=== PATIENT | female | born 1930 | race Caucasian/White ===

== ENCOUNTER 2017-07-02 10:48 | Inpatient (IN) | payer MEDICARE ==
[2017-07-02 11:16] LABS: Oxyhemoglobin 93.3 % (94.0-97.0); Sodium 140 mmol/L (135-148)
[2017-07-02 11:17] LABS: Modified Allen's Test POSITIVE
[2017-07-02 11:18] LABS: Mode 15L NRB
[2017-07-02 11:34] LABS: Hematocrit 34.1 % (36.0-47.0); Mean Platelet Volume 9.1 fL (7.4-10.4); Red Blood Cell (RBC) Count 3.34 mill/uL (4.20-5.40); White Blood Cell (WBC) Count 6.2 thou/uL (4.8-10.8)
[2017-07-02 11:40] LABS: PTT 34.3 SEC (22.9-36.1); Prothrombin Time 21.5 SEC (12.0-14.7)
[2017-07-02 11:43] LABS: Bilirubin Small (Negative); Blood, Urine Moderate (Negative); Glucose, Urine (Dipstick) Negative (Negative); Ketone, Urine Negative (Negative); Nitrite Negative (Negative); Protein, Urine (Dipstick) Negative (Neg-Trace); Urobilinogen 0.2 mg/dL (0.2-1.0)
--- NOTE | 2017-07-02 11:43 | CT ---
CT BRAIN WITHOUT CONTRAST: Date: 07/02/17 HISTORY: Altered mental status. FINDINGS: Comparison made with exam of 04/13/14. Changes of chronic small vessel ischemic disease and cortical atrophy are again seen. Ventricular si ze is stable and the basilar cisterns are patent. No evidence of acute infarct, hemorrhage, midline shift, or abnormal extra-axial fluid collections are seen. The bony calvarium is intact. The visuali zed paranasal sinuses and mastoid air cells are well aerated. IMPRESSION: No CT evidence of acute intracranial process. POS: [facility]
[2017-07-02 11:45] LABS: Bacteria/HPF 2+ HPF (None Seen); Squamous Epithelial 0-3 HPF (0-3); WBC/HPF 0-3 HPF (0-3)
[2017-07-02 11:49] LABS: Band 39 % (5-11); Metamyelocyte 2 % (0-0); Neutrophil 34 % (42-75); Polychromasia SLIGHT = 2-3 cells (100X) (0-2/hpf); Toxic Granulation SLIGHT; Vacuoles MODERATE
[2017-07-02 11:49] LABS: Lactic Acid - Sepsis 2.2 mmol/L (0.5-2.2)
[2017-07-02 11:55] LABS: Amphetamine Not Detected (NotDetected); Methadone Not Detected (NotDetected); Methamphetamine Not Detected (NotDetected)
[2017-07-02 11:56] LABS: RBC/HPF 0-3 HPF (0-3)
[2017-07-02 11:57] LABS: Hyaline Casts/LPF NONE SEEN LPF (0-3 Hyaline); Renal Epithelial None Seen HPF (0-3); Transitional Epithelial NONE SEEN HPF (0-3)
--- NOTE | 2017-07-02 11:59 | RAD ---
SINGLE VIEW OF CHEST: Date: 07/02/17 COMPARISON: 01/06/16. HISTORY: Unresponsive with altered mental status. FINDINGS: Single view of the chest shows an enlarged cardiomediastinal silhouette. Multifocal opacities are se en in the lungs. There may be bilateral pleural effusions. IMPRESSION: 1. Cardiomegaly. 2. Multifocal opacities may represent pulmonary edema or multifocal infiltrates. 3. Bilateral pleural effusions. POS: [facility]
[2017-07-02 12:03] LABS: ALT (SGPT) 55 U/L (8-55); AST (SGOT) 70 U/L (5-34); Acetaminophen Less than 6.0 mcg/mL (10.0-30.0); Alkaline Phosphatase 45 U/L (40-150); Anion Gap 18 mmol/L (10-20); BUN (Urea Nitrogen) 83 mg/dL (9.8-20.1); Bilirubin, Total 0.5 mg/dL (0.2-1.2); CK (CPK) 871 U/L (29-168); Calc. Creatinine Clearance 0 mL/min (70-130); Calcium 8.5 mg/dL (7.8-10.44); Carbon Dioxide 19 mmol/L (23-31); Chloride 106 mmol/L (98-107); Estimated GFR-MDRD 11; Globulin 2.7 g/dL (2.4-3.5); Lipase Less than 4 U/L (8-78); Protein, Total 5.6 g/dL (6.0-8.3); Salicylate Less than 8.0 mg/dL (15.0-30.0)
[2017-07-02 12:06] LABS: Troponin I 3.425 ng/mL (< 0.028)
[2017-07-02] MEDS ORDERED: Clindamycin/D5W 900 mg/50 ml Premix Bag ONE (12:08)
[2017-07-02] MEDS ORDERED: Sodium Chloride 0.9% 100 ML ONE (12:25)
[2017-07-02] MEDS ORDERED: cefTRIAXone\\ROCEPHIN 2 GM VIAL ONE (12:25)
[2017-07-02] MEDS ORDERED: Aspirin 300 MG Suppository ONE (12:47)
[2017-07-02] MEDS ORDERED: Furosemide 40 MG/4 ML VIAL ONE (12:58)
[2017-07-02] MEDS ORDERED: Enoxaparin Sodium 60 MG/0.6 ML SYRINGE ONE (13:06)
--- NOTE | 2017-07-02 14:30 | HP ---
PRIMARY CARE PHYSICIAN: Jean Rodriguez M.D. REASON FOR ADMISSION: The patient came to the emergency room with unresponsiveness. HISTORY OF PRESENT ILLNESS: An 87-year-old female who lives in [place] by herself. She has next-d oor dielectric machine operator who takes care of her. Primary Care Nurse Practitioner is not available at this point. Patient has only one chil d and is present at bedside who lives out of town and she does not have any more clue about presenta tion, so history is very limited at this point. Patient's daughter reports that she visited her in [place], [place] on . At that time, santiago ent appeared completely normal and as per report the patient was also seen normal on Wednesday when she visited [facility]. The patient was not found for 24 hours and that is why dielectric machine operator went to her home and she was found on her floor. So total duration on the ground or bed was unknown. Patient was not r esponsive and that is why she was brought to the emergency room by paramedics. When she found in bed, she was completely altered. She was hot to touch. She was not talking. The patient's daughter reports that she does not like AC and that is why she was not turning on AC at h er home. As per report, neighbor reported that patient was having nausea, vomiting, and gas pain and she was not eating for the last 2 days. Paramedics gave her 4 mg Zofran on the route and she was febrile wi th temperature 100.6. Patient was initially hypoxic with saturation 90% and after nonrebreather fac emask, she was saturating 100%. She was normotensive in the emergency room. The patient found with rhabdomyolysis, acute kidney failure, significantly elevated troponin, and ba ndemia. Patient also had hyperkalemia. Patient also appeared very thin and cachectic. Her chest x -ray was showing multifocal infiltration and pleural effusion. [facility] [place] report reviewed and old history reviewed. REVIEW OF SYSTEMS: All review of systems tried to review with the patient, but unable to review at this point because of her altered mental status. EMERGENCY ROOM COURSE: Patient is given aspirin 325 mg, Lovenox 1 mg per kg, Lasix 40 mg, Rocephin 2 gram, clindamycin 900 mg, Levaquin 750 mg, and IV fluid 1 liter. PAST MEDICAL HISTORY: Coronary artery disease with a history of stent placement, hypertension, dysl ipidemia, gastroesophageal reflux disease, history of colon cancer required resection. PAST SURGICAL HISTORY: Partial colectomy for colon cancer, right arm surgery for proximal humeral f racture, bilateral cataract surgery, cardiac catheterization with stent placement. PAST PSYCHIATRIC HISTORY: Reviewed and negative. SOCIAL HISTORY: The patient lives in [place] by herself. She has only one child who lives in [place], [place]. Patient has a neighbor who is dielectric machine operator who most of the things take care of her. No his tory of tobacco, alcohol or illicit drug abuse. She did have total of 4 children. All of them dece ased except one daughter who was also adopted out, when she was a teenager and they reconnected abou t 10 years ago and her daughter lives in [place], [place]. FAMILY HISTORY: The patient's father from some kind of cancer, no detailed family history at t his point available from patient. ALLERGIES: No known drug allergies. CURRENT HOME MEDICATIONS: The patient does not have any medication with her at this point, but base d on our hospital record from old, patient was on Eliquis 5 mg p.o. b.i.d., lisinopril 10 mg p.o. at bedtime, metoprolol 25 mg p.o. at bedtime, Protonix 40 mg p.o. daily, Zocor 40 mg p.o. at bedtime. This medication is not confirmed and we will verify before entering in system. PHYSICAL EXAMINATION: VITAL SIGNS: Most recently vital signs, blood pressure 151/72, pulse 79, respiratory rate 24, satur ation 99% on facemask, weight 51.3 kilograms, and temperature 99.7. GENERAL: The patient is currently awake, but appears exhausted and weak, opens eyes, follow simple commands. HEAD: Normocephalic, atraumatic. EYES: Pupils round, reactive to light. Extraocular muscles intact. ENT: Dry mucous membranes, no oral lesions. No pharyngeal erythema, no exudate. NECK: Supple. Range of motion is normal. No meningeal signs of irritation. LUNGS: Coarse breath sounds noted. No obvious rhonchi or wheeze heard. No accessory muscles of re spiration in use. CARDIAC: S1 and S2, regular without any significant murmur. ABDOMEN: Soft, bowel sounds present, nontender, and nondistended. No organomegaly, no mass, no sup rapubic tenderness. BACK: Examination unremarkable, no CVA tenderness. EXTREMITIES: Upper extremity, passive movements of all joints are normal. Lower extremity, no jodee a. Good peripheral pulsation. SKIN: No skin rash. HEMATOLOGICAL SYSTEM: No lymphadenopathy. NEUROLOGIC: Unable to assess at this point because the patient does not follow commands, only she i s awake and minimally responsive. PSYCHIATRIC: Flat affect. SIGNIFICANT LABORATORY DATA AND X-RAY FINDINGS: 1. CBC: WBC 6.2, hemoglobin 11.2, MCV 102.0, platelets 211, bandemia. INR 1.8. ABG: pH 7.33, bi carbonate 22.6, CO2 44.2, O2 80.1, saturation 95%. 2. BMP: Sodium 138, potassium 5.4, chloride 106, carbon dioxide 19, anion gap 18, BUN 83, creatini ne 3.92, glucose 162, and calcium 8.5. 3. LFT: AST 70, ALT 55, alkaline phosphatase 745, and albumin 2.9. CK 871, CK-MB 8.3, troponin I is 3.42. BNP 840.4, TSH 0.1561. Ammonia 32. Lactic acid 2.2. Urinalysis, blood large. Urine tawny g screen negative. Serum drug screen negative. 4. EKG showing sinus rhythm without any acute ischemic changes. Chest x-ray showing multifocal inf iltration and bilateral pleural effusion. CT brain negative for any acute intracranial process. ASSESSMENT AND PLAN/IMPRESSION: 1. Acute encephalopathy, etiology is likely related with metabolic encephalopathy. Underlying infe ctious etiology needs to be excluded. Neurologic, less likely given CT brain is unremarkable. 2. Acute respiratory failure with hypoxia. Patient is maintaining oxygen with a nonrebreather. At this point, patient also has bilateral multifocal infiltration and bilateral pleural effusion. Her hypoxic respiratory failure is multifactorial etiology including possibly aspiration pneumonia vers us pulmonary edema. The patient will be admitted in IMCU. Pulmonary and Cardiology will be consult ed. 3. Acute kidney failure, likely due to prerenal etiology. The patient is given IV fluid trial and we will continue IV fluid at a slow rate and we will watch for any volume overload. At this point, I am suspecting that this patient has prerenal kidney failure rather than congestive heart failure r elated renal insufficiency. We will check urine sodium, urine creatinine, and protein. We will obt ain renal ultrasound and we will consult Nephrology for evaluation as well. 4. Sepsis with acute organ dysfunction. The patient has bandemia, acute kidney failure, and non-ST -elevation myocardial infarction, rhabdomyolysis, abnormal LFT. All of this contributes to sepsis w ith acute organ dysfunction. This patient was also febrile. At this point, we will give her pharma cy adjusted vancomycin and Zosyn to cover for anaerobes and Staphylococcus. 5. Pkt-AS-kmfzeopos myocardial infarction. It is unclear whether this patient was having any chest pain or not, but EKG is not showing any ischemic changes. She does have coronary artery disease hi story with stent and this patient's troponin is significantly abnormal. It is also unclear whether this is related with demand ischemia of myocardium or not. We will obtain echocardiography and cons ult Cardiology. Meanwhile, we will continue with aspirin 325 mg p.o. daily. Patient already receiv ed Lovenox in the emergency room. 6. Elevated BNP. This patient has bilateral pleural effusion and fluffy infiltration. It is uncle ar whether this patient has acute congestive heart failure, diastolic, based on previous echo. We w ill repeat echocardiography. The patient has already received Lasix, but at this point given renal insufficiency and patient is so dry, we will avoid diuretic therapy. We will watch her on IMCU. If the patient's condition gets worse with fluid, then we will consider starting diuretic therapy. 7. Rhabdomyolysis, likely due to prolonged bedbound position patient remained in bed, almost 24 mitzy rs. Patient will be given gentle IV fluid and we will repeat CK level tomorrow. 8. Hyperkalemia, likely due to metabolic acidosis and renal failure. We will hold on patient's sandie e dose of lisinopril. At this point, we will avoid potassium supplementation. We will repeat basic metabolic panel tomorrow. 9. Aspiration pneumonia. The patient is already on vancomycin and Zosyn. We will continue with e DuoNeb therapy. 10. Microcytic anemia. We will start folic acid, vitamin B12 while in hospital and we will check B 12 and folate level tomorrow. 11. Moderate protein calorie malnutrition. The patient will be given nutritional supplement. Befo re we start any diet, we will need speech therapy evaluation to assess safest diet. 12. Coagulopathy, may be related with sepsis versus current anticoagulation. It is unclear whether this patient is still taking Eliquis or not, but we will verify the patient's home medication. 13. History of dyslipidemia. We will hold on statin therapy because of rhabdomyolysis. 14. Hypertension. We will continue with metoprolol 25 mg p.o. b.i.d. We will hold on lisinopril t herapy because of hyperkalemia and kidney failure. 15. Gastroesophageal reflux disease. We will continue with Pepcid 20 mg IV daily. CODE STATUS: I spoke with the patient's daughter who states that she only wants to try one time for CPR and intubation. If there are chances of survival, in that case, we will keep as a FULL CODE an d patient's daughter is surrogate decision maker. Disposition plan based on clinical course. This patient may need placement upon discharge. Prognos is is guarded. Condition is guarded. Plan of care discussed with the patient's family member at be [facility] in the emergency room.
[2017-07-02 14:52] LABS: Critical Call Chem Troponin I RESULT DECREASING
[2017-07-02] MEDS ORDERED: Ondansetron HCl/PF 4 MG/2 ML Vial IVP PRN ×2 (14:55→15:08)
[2017-07-02] MEDS ORDERED: Sodium Chloride 0.9% 1,000 ML IV SCH (14:55)
[2017-07-02] MEDS ORDERED: Ondansetron ODT 4 MG TAB SL PRN ×2 (14:55→15:08)
[2017-07-02] MEDS ORDERED: VANCOMYCIN IVPB PRN (15:08)
[2017-07-02] MEDS ORDERED: Bisacodyl 10 MG SUPP PR PRN (15:08)
[2017-07-02] MEDS ORDERED: Acetaminophen 650 MG Suppository PR PRN (15:08)
[2017-07-02] MEDS ORDERED: Acetaminophen 325 MG TAB PO PRN (15:08)
[2017-07-02] MEDS ORDERED: Nitroglycerin 0.4 MG TAB (25 Tab Bottle) SL PRN (15:08)
[2017-07-02] MEDS ORDERED: Diabetic Tussin 200 MG/10 ML UDCUP PO PRN (15:08)
[2017-07-02] MEDS ORDERED: Loperamide HCl 2 MG CAP PO PRN (15:08)
[2017-07-02] MEDS ORDERED: Sodium Chloride 0.65% Nasal 44 ML BOT EA NARE PRN (15:08)
[2017-07-02] MEDS ORDERED: Eucerin (Mineral Oil/Petrolatum,White) 30 gm Jar TOP PRN (15:08)
[2017-07-02] MEDS ORDERED: Milk Of Magnesia 30 ML UDCUP PO PRN (15:08)
[2017-07-02] MEDS ORDERED: Mag-Al 1200 mg/1200 mg/30 ML UDCUP PO PRN (15:08)
[2017-07-02] MEDS ORDERED: Artificial Tears 18 DROP/0.9 ML EA EYE PRN (15:08)
[2017-07-02 15:16] LABS: Oxyhemoglobin 85.3 % (94.0-97.0); Sodium 137 mmol/L (135-148)
[2017-07-02] MEDS ORDERED: Midazolam HCl 2 mg/2 ml Vial ONE (15:33)
[2017-07-02] MEDS ORDERED: Fentanyl 20 MCG/ML 250 ML ONE (15:37)
[2017-07-02 15:44] LABS: Vent NO
[2017-07-02 15:45] LABS: Mode NC
[2017-07-02 15:49] LABS: Free T3 1.45 pg/mL (1.71-3.71)
[2017-07-02] MEDS ORDERED: Sedation Protocol FS ONE (15:54)
[2017-07-02] MEDS ORDERED: Fentanyl 20 MCG/ML 250 ML IVPB SCH (15:56)
[2017-07-02] MEDS ORDERED: DISCONTINUE PREVIOUS NARCOTIC PAIN MEDICATIONS AND BENZODIAZEPINES FS SCH (15:56)
[2017-07-02] MEDS ORDERED: Morphine Sulfate 2 MG/ML SYRINGE SLOW IVP PRN (15:56)
[2017-07-02] MEDS ORDERED: Propofol 1,000 MG/100 ML VIAL IV PRN (15:56)
[2017-07-02] MEDS ORDERED: Lorazepam 2 MG/ML VIAL SLOW IVP PRN (15:56)
--- NOTE | 2017-07-02 16:07 | CON ---
DATE OF SERVICE: 07/02/2017 PRIMARY HAZMAT TANKER DRIVER: Jass Fowler M.D. REASON FOR CONSULTATION: Non-STEMI. HISTORY OF PRESENT ILLNESS: Ms. Mcmillan is a very pleasant 87-year-old white female, who comes to the hospital as she was found down at home. She lives home alone and her machining technician and her neighbor come check on her, they take turns every other day. Today, it was her pastors turn and she was found un responsive on the floor. 911 was called and she was brought in immediately for this. She was hypox ic and started on supplemental oxygen. On my evaluation, she is confused, obtunded and unresponsive . She had a temperature of 100.6 in the ER. Cardiology is being consulted as her troponins went to 3 range. She is unable to give any more history. PAST MEDICAL HISTORY: 1. Coronary artery disease. She had a stent placed to her LAD and OM branch in 2008. 2. Gastroesophageal reflux disease. 3. Hypertension. 4. Hypolipidemia. 5. Colon cancer, requiring resection in the past. PAST SURGICAL HISTORY: 1. Colon resection. 2. Right arm surgery. 3. Bilateral cataract surgery. 4. Cardiac catheterization with stent as above. OUTPATIENT MEDICATIONS: Per chart review. 1. Eliquis 5 mg p.o. b.i.d. 2. Lisinopril 10 mg a day. 3. Metoprolol 25 mg at bedtime. 4. Protonix 40 mg a day. 5. Zocor 40 mg at bedtime. ALLERGIES: No known drug allergies. FAMILY HISTORY: Noncontributory. SOCIAL HISTORY: Lives alone. Daughter lives in [place], but does not really know her, neighbor an d a machining technician see her. No alcohol, tobacco or drugs per chart review. REVIEW OF SYSTEMS: Unobtainable as the patient is unresponsive. PHYSICAL EXAMINATION: VITAL SIGNS: Temperature 100.6, respiration rate 28, saturating 92% on 4 liters, blood pressure 142 /68. GENERAL: Patient is awake, but unresponsive. HEENT: Normocephalic, atraumatic. NECK: Supple. LUNGS: Have coarse breath sounds bilateral. CARDIOVASCULAR: Distant heart sounds. ABDOMEN: Soft, positive bowel sounds. EXTREMITIES: 1+ edema. LABORATORY WORK: Reviewed. White count of 6.2, hemoglobin of 11, hematocrit of 34, platelet count 211. Coags were reviewed. ABG was reviewed. Chemistries were reviewed. Troponin I from 3.4, down to 2.9. BNP was 840. BUN of 83, creatinine 3.92, GFR of 11, glucose of 162. Lactic acid was 2.2, ammonia was 32. CK was 871, albumin of 2.9. TSH was low at 0.1. Lipase was undetectable. UA was unremarkable. Urine drug screen was negative. Alcohol, acetaminophen, and salicylates were negati ve. EKG was reviewed. Chest x-ray shows bilateral pulmonary edema. CT of the head showed no evidence of acute intracranial process. ASSESSMENT AND PLAN: 1. Non-ST elevation myocardial infarction. 2. Acute on chronic systolic versus diastolic heart failure. 3. Possible pneumonia. 4. Altered mental status. 5. Acute kidney injury on chronic kidney disease. 6. Coronary artery disease. PLAN: 1. Supportive care. Currently, she is severely ill and is about to get intubated and she is unable to protect her airway. She remains FULL CODE for now. At this time, we will await to see when her clinical evolution does before deciding on any invasive interventions. Supportive care for now aft er intubation, she may need some pressor support or some inotropic support. We will get an echocard iogram to assess LV function that has been normal in the past. 2. We will continue to follow.
[2017-07-02 16:41] LABS: Oxyhemoglobin 95.3 % (94.0-97.0); Sodium 136 mmol/L (135-148)
[2017-07-02 16:45] LABS: Mechanical Tidal Volume 400 ml; Mode SIMV; Pressure Support 10 cmH2O; Vent YES
[2017-07-02] MEDS: Piperacillin/Tazobactam 2.25 GM in Sodium Chloride 0.9% 100 ML IVPB SCH ×2 (18:39→23:39)
--- NOTE | 2017-07-02 19:05 | RAD ---
PORTABLE AP CHEST X-RAY: 07/02/17 HISTORY: Intubated. COMPARISON: 07/02/17 at 11:45 hours. FINDINGS: There has been interval placement of an endotracheal tube with tip overlying the T6 vertebral body a lucho the level of the china. The nasogastric tube has also been placed in the interim which courses into the left upper quadrant, the tip is not imaged on this exam. Increased interstitial and alveol ar opacities are again seen in the perihilar regions bilaterally and at the lung bases. Vascular calcifications are seen in the thoracic aorta. There is osteopenia with right humeral prost hesis again noted. IMPRESSION: 1. Bilateral increased interstitial and alveolar opacities greatest at each lung base which is worrisome for pneumonia and possibly atypical pneumonia. 2. Interval placement of endotracheal tube and nasogastric tube as described above. POS: [facility]
--- NOTE | 2017-07-02 19:23 | ULT ---
RENAL SONOGRAM 07/02/17 HISTORY: Acute renal insufficiency. COMPARISON: CT abdomen on 01/19/17. FINDINGS: The right kidney measures 9.7 cm x 4.5 cm with the left kidney measuring 9.7 cm x 5.8 cm. There is a small hypoechoic structure seen at the medial aspect mid portion left kidney which likely corresponds to small hypodense lesion seen in this location on prior CT examination and probably re presents a small renal cyst. There is no additional renal mass, renal calculus or hydronephrosis inv olving the kidneys bilaterally. The urinary bladder is decompressed and Lacy catheter is noted to be in place. IMPRESSION: Difficult to characterize hypodense lesion medial aspect left kidney which likely corresponds to sma ll hypodense lesion seen mid portion left kidney on CT scan examination which had the appearance mos t suggestive of a cyst. The kidneys otherwise have a normal sonographic appearance bilaterally witho ut evidence of hydronephrosis. POS: [facility]
[2017-07-02 19:27] LABS: Sodium, Urine Less than 20 mmol/L (Not Available)
[2017-07-02 19:41] LABS: Troponin I 1.938 ng/mL (< 0.028)
[2017-07-02] MEDS ORDERED: Clindamycin/D5W 900 MG in Premix Bag 1 BAG IVPB SCH (20:00)
[2017-07-02] MEDS ORDERED: Vancomycin HCl 500 MG in Sodium Chloride 0.9% 100 ML IVPB SCH (20:00)
[2017-07-02] MEDS: Metoprolol Tartrate 25 MG TAB PO SCH (20:26)
[2017-07-02] MEDS ORDERED: Furosemide 40 MG/4 ML VIAL SLOW IVP SCH (21:00)
[2017-07-02] MEDS: Heparin 5,000 UNITS/ML VIAL SC SCH (21:05)
[2017-07-02 21:50] LABS: Critical Call CKMBM RESULT DECREASING; Critical Call Chem Troponin I RESULT DECREASING; Troponin I 1.457 ng/mL (< 0.028)
--- NOTE | 2017-07-02 23:56 | CON ---
DATE OF CONSULTATION: 07/02/2017 HISTORY OF PRESENT ILLNESS: This is an 87-year-old female who was admitted to the [facility]. She had a chest x-ray, which shows large pleural effusion and bilateral pulmonary infiltrates. She is on MICU when the nurses called me saying patient arrived unresponsive and looked like she was hav ing difficulty breathing, but clearly unresponsive to verbal command. I tried to call the daughter to get information about her code status, but we were unable to do so. She was bagged and transferred to the ICU. Admitting physician stated that they spoke to the miriam lima who wanted everything to be done initially. Thereafter, would make a decision about long-term c are. She was immediately taken to the ICU where she was bagged and was given no sedation. A bite block w as placed and a 7.5 endotracheal tube was placed via the bronchoscope. The patient was intubated or ally without any problems. Tube was placed way above the china. She was bagged. A bite block was placed, and with an adapter on the endotracheal tube, both lungs were inspected and lavaged with no rmal saline. To note, both lungs with no endobronchial obstruction or blood or pus was seen. She w as connected to a volume-cycle respirator. Additional information is that the patient apparently was inside sales representative the ER with a temperature of 100.6 and blood pressure 130/70. Unable to get any additional history. PAST MEDICAL HISTORY: Coronary artery disease, multiple stents, history of colon cancer, history of hypertension, IL and coronary artery disease. PAST SURGICAL HISTORY: Shoulder surgery, cardiac stent, an EGD done for ongoing colitis, colon surg betty, proximal humerus surgery, cataract, stenting. SOCIAL HISTORY: Apparently, no history of alcohol or tobacco use that we can obtain. MEDICATIONS FROM HOME: Included Zocor, Protonix 40, metoprolol 25, Zestril 10 and Eliquis 5 b.i.d. REVIEW OF SYSTEMS: Unobtainable. PHYSICAL EXAMINATION: GENERAL: She was bagged. VITAL SIGNS: Sats improved to the 90s, pulse 74 and blood pressure 120/80. CHEST: Bilateral rhonchi and crackles. CARDIAC: Sinus tachycardia. ABDOMEN: Soft. Post-intubation, she was given 1 mg of Versed. She is still pretty much unresponsive. NG tube is i n place. LABORATORY DATA: White count 6000, hemoglobin and hematocrit 11 and 34, platelet count 211, 1 6, 34 neutrophils and 60 lymphocytes. Creatinine is 3.2, BUN is 83, CK-MB is 8.3, troponin 2.9 and BNP is 840. UA is otherwise unremarkable. IMPRESSION AND PLAN: 1. Metabolic encephalopathy. 2. Renal failure. 3. X-ray consistent with congestive heart failure, bilateral pleural effusion and infiltrates. 4. Advanced age. 5. Multiple stents. She had a CT done of the brain, which was unremarkable. Post-intubation, await input from Cardiolog y. Empiric antibiotics and supportive care. Await results of the echo. We will consult Nephrology. We will follow. This is a 45-minute critical care time exclusive of the intubation.
[2017-07-03 05:07] LABS: ALT (SGPT) 88 U/L (8-55); AST (SGOT) 86 U/L (5-34); Alkaline Phosphatase 46 U/L (40-150); Anion Gap 17 mmol/L (10-20); BUN (Urea Nitrogen) 82 mg/dL (9.8-20.1); Bilirubin, Total 0.4 mg/dL (0.2-1.2); CK (CPK) 1200 U/L (29-168); Calc. Creatinine Clearance 11 mL/min (70-130); Calcium 8.5 mg/dL (7.8-10.44); Carbon Dioxide 22 mmol/L (23-31); Chloride 105 mmol/L (98-107); Estimated GFR-MDRD 15; Globulin 2.8 g/dL (2.4-3.5); Protein, Total 5.6 g/dL (6.0-8.3)
[2017-07-03 05:12] LABS: Band 41 % (5-11); Hematocrit 33.2 % (36.0-47.0); Mean Platelet Volume 9.8 fL (7.4-10.4); Neutrophil 48 % (42-75); Red Blood Cell (RBC) Count 3.29 mill/uL (4.20-5.40); White Blood Cell (WBC) Count 7.1 thou/uL (4.8-10.8)
[2017-07-03] MEDS: Piperacillin/Tazobactam 2.25 GM in Sodium Chloride 0.9% 100 ML IVPB SCH ×3 (05:20→17:17)
[2017-07-03] MEDS: Furosemide 100 MG/10 ML VIAL SLOW IVP SCH ×2 (05:21→13:49)
--- NOTE | 2017-07-03 07:11 | CON ---
NEPHROLOGY CONSULT DATE OF CONSULTATION: 07/02/2017 CONSULTING PHYSICIAN: Dr. Nevarez. REASON FOR CONSULTATION: Acute kidney injury and hyperkalemia. REASON FOR ADMISSION: Altered mentation and unresponsiveness. HISTORY OF PRESENT ILLNESS: This is an 87-year-old white female from [place] with a past medical h istory of coronary artery disease, hypertension, hyperlipidemia, and colon cancer, who was brought t o the hospital after was found on the floor, she was found by her cashier general who lives next-door and myles cks on her periodically. Her daughter was also here who is from [place], [place]. No real history is available at this point. Patient was in ICU and intubated. Also from review of the records and the patient was intubated here at the facility. She was found to have respiratory distress. No fev er or chills reported. No skin rash. Patient was also found to have elevated creatinine. Creatini ne on admission was 3.9 and last creatinine was from March, which was 0.83. She was also found to rodriguez ve elevated troponin. Cardiology was consulted. PAST MEDICAL HISTORY: Positive for coronary artery disease, hypertension, hyperlipidemia, gastroeso phageal reflux disease and colon cancer. PAST SURGICAL HISTORY: Partial colectomy, right arm fracture repair, bilateral cataract surgery, ca rdiac catheterization and stent placement. HOME MEDICATIONS: Eliquis, lisinopril, metoprolol, Protonix, Zocor. ALLERGIES: No known drug allergies. SOCIAL HISTORY: No smoking, alcohol or illicit drug abuse. FAMILY HISTORY: No history of any kidney disease reported. REVIEW OF SYSTEMS: Could not be obtained as she is intubated and not responding. PHYSICAL EXAMINATION: GENERAL: This is an elderly white female seen in ICU, intubated. VITAL SIGNS: Temperature 96, pulse 104, blood pressure 109/69. HEENT: Intubated. HEART: S1, S2 heard, tachycardic. RESPIRATORY: Coarse breath sounds. GASTROINTESTINAL: Abdomen is soft. MUSCULOSKELETAL: No tenderness, no edema. DERMATOLOGIC: Chronic elderly, fragile skin. NEUROLOGIC: Intubated, not responding, making non-purposeful movements at this point. LABORATORY AND X-RAY FINDINGS: Hemoglobin is 11.2, potassium was 5.4, BUN 83, creatinine 3.9. Trop onin I was 3.4. ASSESSMENT AND PLAN: 1. Acute kidney injury most likely from volume depletion and possible cardiorenal with a possible c oronary artery disease and cardiac arrest at home. 2. Elevated BNP. 3. Hyperkalemia renal failure. Limit potassium. 4. Acidosis secondary to hypoperfusion. 5. Azotemia. 6. Anemia, mild. 7. Hypertension, stable. 8. Edema, controlled. Overall, prognosis remains poor at this point. Renal ultrasound pending; follow up results. Avoid nephrotoxins. Continue supportive care at this point. Continue discussion with the family. Emilia haines has a poor prognosis, currently on Lasix IV and IV fluids. We will monitor vancomycin level. Thank you for the consultation. We will follow.
[2017-07-03 07:23] LABS: Oxyhemoglobin 96.3 % (94.0-97.0); Sodium 139 mmol/L (135-148)
[2017-07-03 07:24] LABS: Mechanical Tidal Volume 400 ml; Modified Allen's Test NOT DONE; Vent YES
[2017-07-03 07:25] LABS: Mode SIMV/PSV; Pressure Support 10 cmH2O
[2017-07-03] MEDS: Metoprolol Tartrate 25 MG TAB PO SCH ×2 (08:53→20:27)
[2017-07-03] MEDS: Famotidine/PF 20 mg/2ml Vial SLOW IVP SCH (08:53)
[2017-07-03] MEDS: Folic Acid 1 MG TAB PO SCH (08:53)
[2017-07-03] MEDS: Heparin 5,000 UNITS/ML VIAL SC SCH ×2 (08:53→20:26)
[2017-07-03] MEDS: Aspirin 325 MG TAB PO SCH (08:53)
[2017-07-03] MEDS: Cyanocobalamin (Vitamin B-12) 1,000 MCG TAB PO SCH (08:56)
[2017-07-03] MEDS: Aspirin 300 MG Suppository PR SCH (09:23)
[2017-07-03] MEDS: Dextrose 5 %-0.45 % NaCl 1,000 ML IV SCH (09:29)
--- NOTE | 2017-07-03 11:27 | RAD ---
AP VIEW CHEST: 07/03/2017 HISTORY: Ventilator dependent patient. COMPARISON: 07/02/2017 FINDINGS: AP view chest demonstrates nasogastric and endotracheal tubes to be in good position. A prosthetic right shoulder is seen. EKG leads are seen over the chest. Pulmonary vascular congestion is noted. Bilateral air space opacities are seen. Patchy areas of density are also seen in the right and le ft lung bases. Small bilateral pleural effusions are seen. Overall, the degree of air space opacit y is less than on the previous day's exam. IMPRESSION: Improved aeration and decrease air space opacities. POS: [facility]
--- NOTE | 2017-07-03 12:09 | PDOC.CTH ---
Cardiology Progress Note - Subjective Remains intubated. - Objective Vital Signs Temp Pulse Resp BP Pulse Ox 07/03/17 10:00 13 07/03/17 08:00 99.6 F 119 H 13 100 07/03/17 06:57 125 H 121/69 07/03/17 06:00 20 07/03/17 04:00 20 07/03/17 02:45 119 H 07/03/17 02:00 20 Weight 113 lb 8.609 oz 07/02/17 07/03/17 07/04/17 06:59 06:59 06:59 Intake Total 1405 231 Output Total 1405 730 Balance 0 -499 - Physical Examination General/Neuro: other: (Sedated intubated. ) Neck: no JVD present Lungs: unlabored respirations, other: (Crackles bilat. ) Heart: RRR Abdomen: NT/ND Extremities: + edema B (none) - Telemetry Telemetry Rhythm: NSR - Labs Result Diagrams: 07/03/17 03:47 07/03/17 03:47 Troponin/CKMB CK-MB (CK-2) 12.1 ng/mL (0-6.6) H* 07/02/17 21:12 Troponin I 1.457 ng/mL (< 0.028) H* 07/02/17 21:12 - Assessment/Plan 1. NSTEMI 2. Acute on chronic diastolic heart failure. 3. Possible pneumonia. 4. Acute hypoxic respiratory insufficiency 5. AMS 6. MARILYN on CKD. PLAN: - Continue IV lasix as her creatinine and lungs look better today from diuresis. - Became a little hypotensive with metoprolol, will hold for now. - Will do permissive tachycardia as she may need the heart rate due to her acute illness. - Initial troponin was in the 3 range and it has been trending down since admission suggesting that if this was a coronary event it happened at least 48 hours before admission and we are only seeing the end tail of the episode. - No invasive interventions planned at this time due to her being unstable still.
--- NOTE | 2017-07-03 13:26 | PRG ---
DATE OF SERVICE: 07/03/2017 SUBJECTIVE: Awake, alert, responsive this morning on the vent. She is on 25 mcg of fentanyl, which was withheld. OBJECTIVE: VITAL SIGNS: Pulse 123, blood pressure is 104/30, sats are 100%, respirations 20. I's and O's are 145 in and 145 out. NEUROLOGICAL: She does move all 4 extremities. CHEST: Chest reveals decreased breath sounds, no wheezing. CARDIAC: Normal S1, S2. No gallops. ABDOMEN: Soft, no masses. X-RAY: Shows improvement in bilateral pleural effusions, there is right-sided infiltrate. LABORATORY DATA: She has got 48 segs, 41, bands. White count 10,000, H\T\H is 11 and 33, platelet count 197, pO2 of 95, pCO2 42, pH 7.42, on a rate of 20, 60%. BUN and creatinine are 82 and 2.93. Troponin is 1.45. IMPRESSION: 1. Respiratory failure, congestive heart failure, probably had an myocardial infarction. 2. Superimposed pneumonia. 3. Bandemia. 4. Advanced age. 5. Renal failure. PLAN: Minimize sedation, try and wean in the next 24-48 hours. Continue antibiotics, nebulizer treatments, steroids. We will follow. One-half hour critical care time.
--- NOTE | 2017-07-03 14:10 | PDOC.PN ---
- Subjective Encounter Start Date: 07/03/17 Encounter Start Time: 08:40 Pt seen for followup re: acute respiratory failure. Intubated, unable to provide history or ROS. - Objective Resuscitation Status: Resuscitation Status FULL:Full Resuscitation MAR Reviewed: Yes Vital Signs & Weight: Vital Signs (12 hours) Temp Pulse Pulse Pulse Resp BP BP 07/03/17 12:00 10 L 07/03/17 11:25 121 H 121 H 172/99 H 07/03/17 10:00 13 07/03/17 08:00 99.6 F 119 H 13 07/03/17 06:57 125 H 121/69 07/03/17 06:00 20 07/03/17 04:00 20 07/03/17 02:45 119 H BP Pulse Ox Pulse Ox Pulse Ox 07/03/17 12:00 07/03/17 11:25 141/82 H 95 95 07/03/17 10:00 07/03/17 08:00 100 07/03/17 06:57 07/03/17 06:00 07/03/17 04:00 07/03/17 02:45 Weight Admit Weight 113 lb 8.608 oz Weight 113 lb 8.609 oz Most Recent Monitor Data Heart Rate from ECG 113 NIBP 109/69 NIBP BP-Mean 85 Respiration from ECG 18 SpO2 100 I&O: 07/02/17 07/03/17 07/04/17 06:59 06:59 06:59 Intake Total 1405 231 Output Total 1405 930 Balance 0 -699 Result Diagrams: 07/03/17 03:47 07/03/17 03:47 EKG Reviewed by me: Yes (Tele: NSR) Phys Exam - Physical Examination Intubated HEENT: moist MMs ETT Neck: no JVD Respiratory: no wheezing, no rales, no rhonchi, clear to auscultation bilateral Cardiovascular: RRR, no rub Gastrointestinal: soft, positive bowel sounds Musculoskeletal: pulses present, edema present Neurological: moves all 4 limbs Psychiatric: normal affect Skin: no rash, cap refill <2 seconds Dx/Plan (1) Acute respiratory failure Code(s): J96.00 - ACUTE RESPIRATORY FAILURE, UNSP W HYPOXIA OR HYPERCAPNIA Status: Acute (2) NSTEMI (non-ST elevated myocardial infarction) Code(s): I21.4 - NON-ST ELEVATION (NSTEMI) MYOCARDIAL INFARCTION Status: Acute (3) E. coli UTI Code(s): N39.0 - URINARY TRACT INFECTION, SITE NOT SPECIFIED; B96.20 - UNSP ESCHERICHIA COLI THE CAUSE OF DISEASES CLASSD ELSWHR Status: Acute (4) Rhabdomyolysis Code(s): M62.82 - RHABDOMYOLYSIS Status: Acute (5) Hypertension Code(s): I10 - ESSENTIAL (PRIMARY) HYPERTENSION Status: Chronic - Plan continue antibiotics, DVT proph w/heparin * . Rhabdo worsening. Continue gentle hydration. Continue IV antibiotics for E. coli UTI. Troponin trending down. Vent management per PCCM. Review of Systems - Medications/Allergies Allergies/Adverse Reactions: Allergies Allergy/AdvReac Type Severity Reaction Status Date / Time No Known Allergies Allergy Verified 02/16/17 11:27 Medications: Current Medications Acetaminophen (Tylenol) 650 mg PO Q4H PRN PRN Reason: Headache/Fever or Pain Acetaminophen (Tylenol) 650 mg [place] Q4H PRN PRN Reason: Headache/Fever or Pain Al Hydroxide/Mg Hydroxide (Maalox) 30 ml PO Q6H PRN PRN Reason: Heartburn or Indigestion Albuterol/Ipratropium (Duoneb) 3 ml NEB [id number] PRN PRN Reason: SOB &/or Wheezing Artificial Tears (Tears Naturale) 0 drop EA EYE PRN PRN PRN Reason: Dry Eyes Aspirin (Aspirin) 300 mg [place] DAILY [facility] Last Admin: 07/03/17 09:23 Dose: Not Given Aspirin (Aspirin) 325 mg PO DAILY [facility] Last Admin: 07/03/17 08:53 Dose: 325 mg Bisacodyl (Dulcolax) 10 mg [place] Q24H PRN PRN Reason: Constipation Cyanocobalamin (Vitamin B-12) 1,000 mcg PO DAILY [facility] Last Admin: 07/03/17 08:56 Dose: 1,000 mcg Famotidine (Pepcid) 20 mg SLOW IVP DAILY [facility] Last Admin: 07/03/17 08:53 Dose: 20 mg Folic Acid (Folvite) 1 mg PO DAILY [facility] Last Admin: 07/03/17 08:53 Dose: 1 mg Furosemide (Lasix) 60 mg SLOW IVP 0600,1400 [facility] Last Admin: 07/03/17 13:49 Dose: 60 mg Guaifenesin (Robitussin Sf) 200 mg PO Q4H PRN PRN Reason: Cough Heparin Sodium (Porcine) (Heparin) 5,000 units SC BID [facility] Last Admin: 07/03/17 08:53 Dose: 5,000 units Hydralazine HCl (Apresoline) 10 mg SLOW IVP Q4H PRN PRN Reason: Systolic BP > 180 Piperacillin Sod/Tazobactam (Sod 2.25 gm/ Sodium Chloride) 100 mls @ 200 mls/ hr IVPB Q6HR [facility] Last Admin: 07/03/17 12:26 Dose: 100 mls Fentanyl (Fentanyl Cadd) 250 mls @ 0 mls/hr IVPB INF OCTAVIANO; Titrate PRN Reason: Protocol Stop: 08/01/17 15:56 Last Admin: 07/02/17 17:11 Dose: 250 mls Fentanyl Citrate (Fentanyl Bolus) 250 mls @ 0 mls/hr IVPB PRN PRN; As Directed PRN Reason: VENTILATION SEDATION PROTOCOL Stop: 08/01/17 15:56 Vancomycin HCl 500 mg/ Sodium (Chloride) 100 mls @ 100 mls/hr IVPB Q2D@2000 [facility] Last Admin: 07/02/17 20:58 Dose: 100 mls Dextrose/Sodium Chloride (D5 1/2 Ns) 1,000 mls @ 50 mls/hr IV .Q20H [facility] Last Admin: 07/03/17 09:29 Dose: 1,000 mls Loperamide HCl (Imodium) 2 mg PO PRN PRN PRN Reason: Diarrhea/Loose Stools Lorazepam (Ativan) 2 mg SLOW IVP Q2H PRN PRN Reason: Anxiety to achieve Elizabeth 2-3 Stop: 08/01/17 15:56 Magnesium Hydroxide (Milk Of Magnesium) 30 ml PO DAILYPRN PRN PRN Reason: Constipation Methylprednisolone Sodium Succinate (Solu-Medrol) 40 mg IVP BID [facility] Last Admin: 07/03/17 09:29 Dose: 40 mg Metoprolol Tartrate (Lopressor) 25 mg PO BID [facility] Last Admin: 07/03/17 08:53 Dose: 25 mg Mineral Oil/White Petrolatum (Eucerin Cream) 0 gm TOP BIDPRN PRN PRN Reason: Dry Skin Miscellaneous Medication (Pharmacy To Dose) 1 each IVPB PRN PRN PRN Reason: Pharmacy to dose Morphine Sulfate (Morphine Sulfate) 2 mg SLOW IVP Q2H PRN PRN Reason: PAIN TO ACHIEVE ELIZABETH OF 2-3 Stop: 08/01/17 15:56 Nitroglycerin (Nitrostat) 0.4 mg SL Q5MIN PRN PRN Reason: Chest Pain Discontinue Previous Narcotic Pain Medications And Benzodiazepines 1 each FS .ONE OCTAVIANO Stop: 08/01/17 15:56 Ondansetron HCl (Zofran Odt) 4 mg SL Q6H PRN PRN Reason: Nausea/Vomiting Ondansetron HCl (Zofran) 4 mg IVP Q6H PRN PRN Reason: Nausea/Vomiting Propofol (Diprivan) 1,000 mg IV INF PRN; Protocol PRN Reason: TO ACHIEVE ELIZABETH SCORE 2-3 Stop: 08/01/17 15:56 Sodium Chloride ([place] Nas[place] 0.65%) 0 ml EA NARE QIDPRN PRN PRN Reason: Nasal Congestion
--- NOTE | 2017-07-03 19:55 | PRG ---
DATE OF SERVICE: 07/03/2017 SUBJECTIVE: The patient was seen and examined at bedside, remains intubated. No family members are at bedside. PHYSICAL EXAMINATION: GENERAL: This is an elderly female, intubated. VITAL SIGNS: Temperature 99.6, pulse 125, respirations 18, and blood pressure 94/63. HEENT: Intubated. CARDIOVASCULAR: S1, S2 heard, tachycardic. RESPIRATORY: Clear. GASTROINTESTINAL: Abdomen is soft. MUSCULOSKELETAL: No tenderness, no edema. DERMATOLOGIC: No skin rash. NEUROLOGIC: Intubated . PSYCHIATRIC: Mood and affect normal. LABORATORY DATA: Hemoglobin 11.2, potassium 4.5, BUN IS 82, creatinine is 2.9. ASSESSMENT AND PLAN: 1. Acute kidney injury. Renal function is getting better with supportive care , avoid nephrotoxins and long-term prognosis is poor. 2. Elevated BNP. 3. Hyperkalemia, better. 4. Acidosis. 5. Anemia. 6. Hypertension. 7. Edema. Overall, renal function is better. Avoid nephrotoxins. We will follow. MARC
[2017-07-04] MEDS: Piperacillin/Tazobactam 2.25 GM in Sodium Chloride 0.9% 100 ML IVPB SCH ×4 (00:34→17:10)
[2017-07-04] MEDS: Dextrose 5 %-0.45 % NaCl 1,000 ML IV SCH (05:38)
[2017-07-04] MEDS: Furosemide 100 MG/10 ML VIAL SLOW IVP SCH ×2 (05:38→13:10)
[2017-07-04 06:48] LABS: Anion Gap 17 mmol/L (10-20); BUN (Urea Nitrogen) 84 mg/dL (9.8-20.1); Calc. Creatinine Clearance 15 mL/min (70-130); Calcium 8.6 mg/dL (7.8-10.44); Carbon Dioxide 26 mmol/L (23-31); Chloride 104 mmol/L (98-107); Estimated GFR-MDRD 20
[2017-07-04 07:47] LABS: Oxyhemoglobin 94.8 % (94.0-97.0); Sodium 142 mmol/L (135-148)
[2017-07-04 07:49] LABS: Mechanical Tidal Volume 400 ml; Modified Allen's Test NOT DONE; Vent YES
[2017-07-04 07:50] LABS: Mode SIMV/PSV; Pressure Support 10 cmH2O
[2017-07-04] MEDS: Folic Acid 1 MG TAB PO SCH (09:21)
[2017-07-04] MEDS: Aspirin 300 MG Suppository PR SCH (09:21)
[2017-07-04] MEDS: Cyanocobalamin (Vitamin B-12) 1,000 MCG TAB PO SCH (09:21)
[2017-07-04] MEDS: Aspirin 325 MG TAB PO SCH (09:21)
[2017-07-04] MEDS: Heparin 5,000 UNITS/ML VIAL SC SCH ×2 (09:22→21:31)
[2017-07-04] MEDS: Famotidine/PF 20 mg/2ml Vial SLOW IVP SCH (09:35)
[2017-07-04] MEDS: Metoprolol Tartrate 25 MG TAB PO SCH ×2 (09:36→21:36)
--- NOTE | 2017-07-04 10:49 | PDOC.PN ---
- Subjective Encounter Start Date: 07/04/17 Encounter Start Time: 09:20 Pt seen for followup for acute respiratory failure. Pt still intubated, responding to instructions (eg., squeeze hand). Unable to provide ROS. - Objective Resuscitation Status: Resuscitation Status FULL:Full Resuscitation MAR Reviewed: Yes Vital Signs & Weight: Vital Signs (12 hours) Temp Pulse Resp BP Pulse Ox 07/04/17 08:30 84 26 H 97 07/04/17 08:00 99.0 F 84 26 H 95 07/04/17 06:42 73 117/58 L 07/04/17 06:00 10 L 07/04/17 04:00 11 L 07/04/17 03:31 78 07/04/17 02:00 16 07/04/17 00:00 11 L 07/03/17 23:16 137 H 103/64 Weight Admit Weight 113 lb 8.608 oz Weight 111 lb 14.4 oz Most Recent Monitor Data Heart Rate from ECG 66 NIBP 126/67 NIBP BP-Mean 80 Respiration from ECG 16 SpO2 96 I&O: 07/03/17 07/04/17 07/05/17 06:59 06:59 06:59 Intake Total 1405 1741 Output Total 1405 2580 525 Balance 0 -839 -525 Result Diagrams: 07/03/17 03:47 07/04/17 06:00 EKG Reviewed by me: Yes (Tele: Ventricular bigeminy) Phys Exam - Physical Examination Intubated ETT Respiratory: no wheezing, no rales, no rhonchi, clear to auscultation bilateral Cardiovascular: RRR Gastrointestinal: soft, positive bowel sounds Musculoskeletal: pulses present Neurological: moves all 4 limbs Skin: no rash Dx/Plan (1) Acute respiratory failure Code(s): J96.00 - ACUTE RESPIRATORY FAILURE, UNSP W HYPOXIA OR HYPERCAPNIA Status: Acute (2) NSTEMI (non-ST elevated myocardial infarction) Code(s): I21.4 - NON-ST ELEVATION (NSTEMI) MYOCARDIAL INFARCTION Status: Acute (3) E. coli UTI Code(s): N39.0 - URINARY TRACT INFECTION, SITE NOT SPECIFIED; B96.20 - UNSP ESCHERICHIA COLI THE CAUSE OF DISEASES CLASSD ELSWHR Status: Acute (4) Rhabdomyolysis Code(s): M62.82 - RHABDOMYOLYSIS Status: Acute (5) MARILYN (acute kidney injury) Code(s): N17.9 - ACUTE KIDNEY FAILURE, UNSPECIFIED Status: Acute (6) Hypertension Code(s): I10 - ESSENTIAL (PRIMARY) HYPERTENSION Status: Chronic - Plan continue antibiotics * . MARILYN improving. Continue antibiotics. Vent management per PCCM. NSTEMI management per cardiology service. Review of Systems - Medications/Allergies Allergies/Adverse Reactions: Allergies Allergy/AdvReac Type Severity Reaction Status Date / Time No Known Allergies Allergy Verified 02/16/17 11:27 Medications: Current Medications Acetaminophen (Tylenol) 650 mg PO Q4H PRN PRN Reason: Headache/Fever or Pain Acetaminophen (Tylenol) 650 mg [place] Q4H PRN PRN Reason: Headache/Fever or Pain Al Hydroxide/Mg Hydroxide (Maalox) 30 ml PO Q6H PRN PRN Reason: Heartburn or Indigestion Albuterol/Ipratropium (Duoneb) 3 ml NEB [id number] PRN PRN Reason: SOB &/or Wheezing Artificial Tears (Tears Naturale) 0 drop EA EYE PRN PRN PRN Reason: Dry Eyes Aspirin (Aspirin) 300 mg [place] DAILY [facility] Last Admin: 07/04/17 09:21 Dose: Not Given Aspirin (Aspirin) 325 mg PO DAILY [facility] Last Admin: 07/04/17 09:21 Dose: 325 mg Bisacodyl (Dulcolax) 10 mg [place] Q24H PRN PRN Reason: Constipation Cyanocobalamin (Vitamin B-12) 1,000 mcg PO DAILY [facility] Last Admin: 07/04/17 09:21 Dose: 1,000 mcg Famotidine (Pepcid) 20 mg SLOW IVP DAILY [facility] Last Admin: 07/04/17 09:35 Dose: 20 mg Folic Acid (Folvite) 1 mg PO DAILY [facility] Last Admin: 07/04/17 09:21 Dose: 1 mg Furosemide (Lasix) 60 mg SLOW IVP 0600,1400 [facility] Last Admin: 07/04/17 05:38 Dose: 60 mg Guaifenesin (Robitussin Sf) 200 mg PO Q4H PRN PRN Reason: Cough Heparin Sodium (Porcine) (Heparin) 5,000 units SC BID [facility] Last Admin: 07/04/17 09:22 Dose: 5,000 units Hydralazine HCl (Apresoline) 10 mg SLOW IVP Q4H PRN PRN Reason: Systolic BP > 180 Piperacillin Sod/Tazobactam (Sod 2.25 gm/ Sodium Chloride) 100 mls @ 200 mls/ hr IVPB Q6HR [facility] Last Admin: 07/04/17 05:38 Dose: 100 mls Fentanyl (Fentanyl Cadd) 250 mls @ 0 mls/hr IVPB INF OCTAVIAN[facility]; Titrate PRN Reason: Protocol Stop: 08/01/17 15:56 Last Admin: 07/02/17 17:11 Dose: 250 mls Fentanyl Citrate (Fentanyl Bolus) 250 mls @ 0 mls/hr IVPB PRN PRN; As Directed PRN Reason: VENTILATION SEDATION PROTOCOL Stop: 08/01/17 15:56 Dextrose/Sodium Chloride (D5 1/2 Ns) 1,000 mls @ 50 mls/hr IV .Q20H [facility] Last Admin: 07/04/17 05:38 Dose: 1,000 mls Levofloxacin 500 mg/ Device 100 mls @ 100 mls/hr IVPB Q2D@0900 [facility] Last Admin: 07/04/17 09:19 Dose: 100 mls Loperamide HCl (Imodium) 2 mg PO PRN PRN PRN Reason: Diarrhea/Loose Stools Lorazepam (Ativan) 2 mg SLOW IVP Q2H PRN PRN Reason: Anxiety to achieve Elizabeth 2-3 Stop: 08/01/17 15:56 Magnesium Hydroxide (Milk Of Magnesium) 30 ml PO DAILYPRN PRN PRN Reason: Constipation Methylprednisolone Sodium Succinate (Solu-Medrol) 40 mg IVP BID [facility] Last Admin: 07/04/17 09:26 Dose: 40 mg Metoprolol Tartrate (Lopressor) 25 mg PO BID [facility] Last Admin: 07/04/17 09:36 Dose: Not Given Mineral Oil/White Petrolatum (Eucerin Cream) 0 gm TOP BIDPRN PRN PRN Reason: Dry Skin Miscellaneous Medication (Pharmacy To Dose) 1 each IVPB PRN PRN PRN Reason: Pharmacy to dose Morphine Sulfate (Morphine Sulfate) 2 mg SLOW IVP Q2H PRN PRN Reason: PAIN TO ACHIEVE ELIZABETH OF 2-3 Stop: 08/01/17 15:56 Nitroglycerin (Nitrostat) 0.4 mg SL Q5MIN PRN PRN Reason: Chest Pain Discontinue Previous Narcotic Pain Medications And Benzodiazepines 1 each FS .ONE OCTAVIANO Stop: 08/01/17 15:56 Ondansetron HCl (Zofran Odt) 4 mg SL Q6H PRN PRN Reason: Nausea/Vomiting Ondansetron HCl (Zofran) 4 mg IVP Q6H PRN PRN Reason: Nausea/Vomiting Propofol (Diprivan) 1,000 mg IV INF PRN; Protocol PRN Reason: TO ACHIEVE ELIZABETH SCORE 2-3 Stop: 08/01/17 15:56 Sodium Chloride ([place] Nasal [place] 0.65%) 0 ml EA NARE QIDPRN PRN PRN Reason: Nasal Congestion
--- NOTE | 2017-07-04 11:25 | RAD ---
AP VIEW CHEST: HISTORY: Ventilator-dependent patient. FINDINGS: AP view chest is obtained on 07/04/17. Comparison is made to previous exam from 07/03/17. AP view chest demonstrates a right shoulder arthroplasty. Nasogastric and endotracheal tubes again seen. Small bilateral pleural effusions seen. Pulmonary vascular congestion is seen. No significa nt interval changes noted since the previous exam. There may be slight improved aeration of the rig ht upper lobe opacity. Other perihilar and lower lobe opacities unchanged. IMPRESSION: Stable AP view chest, except for possible minimal increased aeration in the right upper lobe. POS: [facility]
--- NOTE | 2017-07-04 14:54 | PDOC.CTH ---
Cardiology Progress Note - Subjective She was extubated earlier today. She is now awake and alert. - Objective Vital Signs Temp Pulse Pulse Pulse Resp BP BP 07/04/17 12:00 07/04/17 08:30 84 26 H 07/04/17 08:28 79 97 141/70 H 07/04/17 08:00 99.0 F 84 26 H 07/04/17 06:42 73 117/58 L 07/04/17 06:00 10 L 07/04/17 04:00 11 L 07/04/17 03:31 78 BP Pulse Ox Pulse Ox Pulse Ox 07/04/17 12:00 95 07/04/17 08:30 97 07/04/17 08:28 133/112 H 97 99 07/04/17 08:00 95 07/04/17 06:42 07/04/17 06:00 07/04/17 04:00 07/04/17 03:31 Admit Weight 113 lb 8.608 oz Weight 111 lb 14.4 oz 07/03/17 07/04/17 07/05/17 06:59 06:59 06:59 Intake Total 1405 1741 182 Output Total 1405 2580 995 Balance 0 -839 -813 - Physical Examination General/Neuro: NAD Neck: no JVD present Lungs: unlabored respirations Heart: RRR Abdomen: NT/ND Extremities: other: (no edema.) - Telemetry Telemetry Rhythm: S Tach - Labs Result Diagrams: 07/03/17 03:47 07/04/17 06:00 Troponin/CKMB CK-MB (CK-2) 12.1 ng/mL (0-6.6) H* 07/02/17 21:12 Troponin I 1.457 ng/mL (< 0.028) H* 07/02/17 21:12 - Assessment/Plan 1. NSTEMI 2. Acute on chronic diastolic heart failure. 3. Possible pneumonia. 4. Acute hypoxic respiratory insufficiency 5. AMS 6. MARILYN on CKD. PLAN: - Continue IV lasix as her creatinine continues to improve. - Will do permissive tachycardia as she may need the heart rate due to her acute illness. - Troponin continues to trend down suggestive of an acute event several days back. - No invasive interventions planned at this time until she is more verbal and creatinine improves more.
--- NOTE | 2017-07-04 15:31 | PRG ---
DATE OF SERVICE: 07/04/2017 NEPHROLOGY PROGRESS NOTE SUBJECTIVE: Patient was seen and examined at bedside and overnight events noted. Patient denies an y shortness of breath or chest pain or palpitation. No history of nausea or vomiting or diarrhea or fever or chills or cramps. OBJECTIVE: GENERAL: This is an elderly female in no apparent distress. VITAL SIGNS: Temperature 99.0, pulse 71, respiratory rate 18, blood pressure 148/60. HEENT: Atraumatic, normocephalic. Oral mucosa is moist. NECK: Supple. CARDIOVASCULAR: S1 and S2 heard, rate and rhythm regular. RESPIRATORY: Clear to auscultation. GASTROINTESTINAL: Abdomen is soft. MUSCULOSKELETAL: No tenderness, no edema. DERMATOLOGIC: No skin rash. NEUROLOGIC: Alert and awake and oriented X3. No focal neurologic deficits. Moving all the extremi ties. PSYCHIATRIC: Mood and affect normal. LABORATORY DATA: Potassium 3.7, BUN 84, creatinine is 2.2 from 3.9 on admission. ASSESSMENT AND PLAN: 1. Acute kidney injury. Renal function continues to get better. Continue supportive care. Will f ollow. 2. Hyperkalemia, better. 3. Acidosis, stable. 4. Hypertension. 5. Edema, currently on furosemide 60 b.i.d. 6. Follow Cardiorenal syndrome. Follow with Cardiology and will follow.
--- NOTE | 2017-07-04 18:30 | PRG ---
DATE OF SERVICE: 07/04/2017 SUBJECTIVE: This morning, awake, alert, responsive, off sedation. OBJECTIVE: VITAL SIGNS: Blood pressure 126/55, pulse 80, sats are 98%. I's and O's in the last 24 hours, 1741 in and 2580 out. CHEST: Revealed bilateral rhonchi and crackles. CARDIAC: Sinus tachycardia. ABDOMEN: Soft, no masses. LABORATORY DATA: PO2 of 73, PCO2 46, pH 7.43, rate 8, 40%. BUN and creatinine are 84 and 2.7. Uri ne is growing E. coli. IMPRESSION: 1. Respiratory failure. 2. Pneumonia. 3. Recent myocardial infarction. 4. Diastolic dysfunction. 5. Renal failure. 6. Advanced age. PLAN: We will try wean and extubate today. Otherwise, continue present antibiotic coverage, neb tr eatments and supportive care. We will follow. One-half hour of critical care time.
[2017-07-05] MEDS: Piperacillin/Tazobactam 2.25 GM in Sodium Chloride 0.9% 100 ML IVPB SCH ×4 (00:21→18:37)
[2017-07-05 04:43] LABS: Anion Gap 17 mmol/L (10-20); BUN (Urea Nitrogen) 98 mg/dL (9.8-20.1); Calc. Creatinine Clearance 15 mL/min (70-130); Calcium 8.9 mg/dL (7.8-10.44); Carbon Dioxide 30 mmol/L (23-31); Chloride 104 mmol/L (98-107); Estimated GFR-MDRD 21
[2017-07-05] MEDS: Dextrose 5 %-0.45 % NaCl 1,000 ML IV SCH (05:19)
[2017-07-05] MEDS: Furosemide 100 MG/10 ML VIAL SLOW IVP SCH ×2 (05:42→13:58)
--- NOTE | 2017-07-05 07:54 | RAD ---
SINGLE VIEW OF CHEST: Date: 07/05/17 COMPARISON: 07/04/17. HISTORY: Ventilated patient with respiratory failure. FINDINGS: Single view of the chest shows normal sized cardiomediastinal silhouette. The endotracheal tube and NG tube have been removed. There is no evidence of consolidation, mass, or pleural effusion. Increas ed interstitial lung markings are present. IMPRESSION: No evidence of acute cardiopulmonary disease. POS: [facility]
[2017-07-05] MEDS: Folic Acid 1 MG TAB PO SCH (08:22)
[2017-07-05] MEDS: Metoprolol Tartrate 25 MG TAB PO SCH ×2 (08:23→20:45)
[2017-07-05] MEDS: Cyanocobalamin (Vitamin B-12) 1,000 MCG TAB PO SCH (08:23)
[2017-07-05] MEDS: Aspirin 325 MG TAB PO SCH (08:23)
[2017-07-05] MEDS: Famotidine/PF 20 mg/2ml Vial SLOW IVP SCH (08:28)
[2017-07-05] MEDS: Heparin 5,000 UNITS/ML VIAL SC SCH ×2 (08:28→20:53)
[2017-07-05] MEDS: Aspirin 300 MG Suppository PR SCH (08:28)
--- NOTE | 2017-07-05 11:38 | PDOC.EVN ---
Event Note - Event Note Event Note: Covering for Dr. Hardy. Asked by Dr. Hardy to sign OOH DNR paperwork, completed.
--- NOTE | 2017-07-05 12:01 | PRG ---
DATE OF SERVICE: 07/05/2017 SUBJECTIVE: An 87-year-old female being seen for acute kidney injury. The patient denies any nause a, vomiting or chest pain. PHYSICAL EXAMINATION: GENERAL: Patient is awake, alert. VITAL SIGNS: Afebrile, pulse 50, breathing at 16, blood pressure 162/73. OBJECTIVE: See above. Awake, alert, in no acute distress. GENERAL APPEARANCE AND MENTAL STATUS: Fair. HEAD/NECK: Normocephalic. Atraumatic. EYES: EOMI. No deformity. EARS: Clear. No ulcers. NOSE: Intact. No lesions. MOUTH: Clear. No discharge. THROAT: Clear. No exudate. LUNGS: Clear. No crackles. CARDIAC: S1, S2. No rub. ABDOMEN: Benign. BS+. GENITALIA/RECTUM: Lacy absent. BACK/EXTREMITIES: Edema 0+ Ulcer- NEUROLOGICAL: Alert and motor intact. SKIN: Rash- Bruise- LYMPHATICS: Edema- Ulcer- LABORATORY: Sodium 147, creatinine 2.2. ASSESSMENT AND RECOMMENDATIONS: 1. Acute kidney injury with chronic kidney disease, stable. 2. Hypertension, stable. 3. Hypernatremia. I would recommend giving patient free water. 4. Anemia, stable. Would recommend decreasing the Lasix.
--- NOTE | 2017-07-05 12:45 | PDOC.PN ---
- Subjective Encounter Start Date: 07/05/17 Encounter Start Time: 09:00 Pt seen for followup re; respiratory failure. Lying in bed comfortably, smiles but not answering questions, unable to complete ROS. - Objective Resuscitation Status: Resuscitation Status FULL:Full Resuscitation MAR Reviewed: Yes Vital Signs & Weight: Vital Signs (12 hours) Temp Pulse Resp Pulse Ox 07/05/17 08:00 97.7 F 59 L 21 H 96 Weight Admit Weight 113 lb 8.608 oz Weight 117 lb 1.047 oz Most Recent Monitor Data Heart Rate from ECG 47 NIBP 161/70 NIBP BP-Mean 79 Respiration from ECG 25 SpO2 96 I&O: 07/04/17 07/05/17 07/06/17 06:59 06:59 06:59 Intake Total 1741 1792 Output Total 2987 8725 875 Balance -839 -973 -875 Result Diagrams: 07/03/17 03:47 07/05/17 03:40 EKG Reviewed by me: Yes (Tele: NSR) Phys Exam - Physical Examination Constitutional: NAD HEENT: moist MMs Neck: supple Respiratory: no wheezing, no rales, no rhonchi, clear to auscultation bilateral Cardiovascular: RRR, no rub Gastrointestinal: soft, positive bowel sounds Musculoskeletal: pulses present Neurological: moves all 4 limbs Psychiatric: normal affect Dx/Plan (1) Acute respiratory failure Code(s): J96.00 - ACUTE RESPIRATORY FAILURE, UNSP W HYPOXIA OR HYPERCAPNIA Status: Acute (2) NSTEMI (non-ST elevated myocardial infarction) Code(s): I21.4 - NON-ST ELEVATION (NSTEMI) MYOCARDIAL INFARCTION Status: Acute (3) E. coli UTI Code(s): N39.0 - URINARY TRACT INFECTION, SITE NOT SPECIFIED; B96.20 - UNSP ESCHERICHIA COLI THE CAUSE OF DISEASES CLASSD ELSWHR Status: Acute (4) Rhabdomyolysis Code(s): M62.82 - RHABDOMYOLYSIS Status: Acute (5) MARILYN (acute kidney injury) Code(s): N17.9 - ACUTE KIDNEY FAILURE, UNSPECIFIED Status: Acute (6) Hypertension Code(s): I10 - ESSENTIAL (PRIMARY) HYPERTENSION Status: Chronic - Plan continue antibiotics, DVT proph w/heparin * . s/p extubation. NSTEMI management per cardiology service. Continue antibiotics for UTI +/- aspiration. Review of Systems - Medications/Allergies Allergies/Adverse Reactions: Allergies Allergy/AdvReac Type Severity Reaction Status Date / Time No Known Allergies Allergy Verified 02/16/17 11:27 Medications: Current Medications Acetaminophen (Tylenol) 650 mg PO Q4H PRN PRN Reason: Headache/Fever or Pain Acetaminophen (Tylenol) 650 mg [place] Q4H PRN PRN Reason: Headache/Fever or Pain Al Hydroxide/Mg Hydroxide (Maalox) 30 ml PO Q6H PRN PRN Reason: Heartburn or Indigestion Albuterol/Ipratropium (Duoneb) 3 ml NEB [id number] PRN PRN Reason: SOB &/or Wheezing Artificial Tears (Tears Naturale) 0 drop EA EYE PRN PRN PRN Reason: Dry Eyes Aspirin (Aspirin) 300 mg [place] DAILY [facility] Last Admin: 07/05/17 08:28 Dose: 300 mg Aspirin (Aspirin) 325 mg PO DAILY [facility] Last Admin: 07/05/17 08:23 Dose: Not Given Bisacodyl (Dulcolax) 10 mg [place] Q24H PRN PRN Reason: Constipation Cyanocobalamin (Vitamin B-12) 1,000 mcg PO DAILY [facility] Last Admin: 07/05/17 08:23 Dose: Not Given Famotidine (Pepcid) 20 mg SLOW IVP DAILY [facility] Last Admin: 07/05/17 08:28 Dose: 20 mg Folic Acid (Folvite) 1 mg PO DAILY [facility] Last Admin: 07/05/17 08:22 Dose: Not Given Furosemide (Lasix) 60 mg SLOW IVP 0600,1400 [facility] Last Admin: 07/05/17 05:42 Dose: 60 mg Guaifenesin (Robitussin Sf) 200 mg PO Q4H PRN PRN Reason: Cough Heparin Sodium (Porcine) (Heparin) 5,000 units SC BID [facility] Last Admin: 07/05/17 08:28 Dose: 5,000 units Hydralazine HCl (Apresoline) 10 mg SLOW IVP Q4H PRN PRN Reason: Systolic BP > 180 Piperacillin Sod/Tazobactam (Sod 2.25 gm/ Sodium Chloride) 100 mls @ 200 mls/ hr IVPB Q6HR [facility] Last Admin: 07/05/17 12:20 Dose: 100 mls Dextrose/Sodium Chloride (D5 1/2 Ns) 1,000 mls @ 50 mls/hr IV .Q20H [facility] Last Admin: 07/05/17 05:19 Dose: 1,000 mls Levofloxacin 500 mg/ Device 100 mls @ 100 mls/hr IVPB Q2D@0900 [facility] Last Admin: 07/04/17 09:19 Dose: 100 mls Loperamide HCl (Imodium) 2 mg PO PRN PRN PRN Reason: Diarrhea/Loose Stools Magnesium Hydroxide (Milk Of Magnesium) 30 ml PO DAILYPRN PRN PRN Reason: Constipation Methylprednisolone Sodium Succinate (Solu-Medrol) 40 mg IVP BID [facility] Last Admin: 07/05/17 08:29 Dose: 40 mg Metoprolol Tartrate (Lopressor) 25 mg PO BID [facility] Last Admin: 07/05/17 08:23 Dose: Not Given Mineral Oil/White Petrolatum (Eucerin Cream) 0 gm TOP BIDPRN PRN PRN Reason: Dry Skin Nitroglycerin (Nitrostat) 0.4 mg SL Q5MIN PRN PRN Reason: Chest Pain Ondansetron HCl (Zofran Odt) 4 mg SL Q6H PRN PRN Reason: Nausea/Vomiting Ondansetron HCl (Zofran) 4 mg IVP Q6H PRN PRN Reason: Nausea/Vomiting Sodium Chloride ([place] Nasal [place] 0.65%) 0 ml EA NARE QIDPRN PRN PRN Reason: Nasal Congestion
--- NOTE | 2017-07-05 13:31 | PRG ---
DATE OF SERVICE: 07/05/2017 SUBJECTIVE: She is in no distress. She is lying flat in bed. OBJECTIVE: VITAL SIGNS: Heart rate 50, blood pressure 161/70, respiratory rate is 20, oximetry is 96. LUNGS: She has bilateral equal breath sounds. HEART: Regular rhythm. ABDOMEN: Soft and nontender. LABORATORY DATA: White count 7.1, hemoglobin 11.2, platelets 197,000. Sodium 147, potassium 3.6, chloride 104, bicarbonate 30, BUN 98, creatinine 2.26. CPK was 1200 when she came in and 849 later in the day, yesterday. Albumin was 2.8. Urine is growing E. coli. Bloo d cultures are negative at 48 hours. IMPRESSION: 1. Status post mechanical ventilation. 2. Mild rhabdomyolysis. 3. Elevated troponin. 4. E. coli cystitis. 5. Acute on chronic kidney disease. LABORATORY DATA: Creatinine on 07/02/2017 was 3.9, it is down to 2.26 now. PLAN: Continue supportive care. Based on my exam and vital signs, she is probably stable to transf er out of the Critical Care Unit to perhaps intermediate care.
[2017-07-06] MEDS: Piperacillin/Tazobactam 2.25 GM in Sodium Chloride 0.9% 100 ML IVPB SCH ×5 (00:08→23:32)
[2017-07-06] MEDS: Dextrose 5 %-0.45 % NaCl 1,000 ML IV SCH (04:03)
[2017-07-06] MEDS: Furosemide 100 MG/10 ML VIAL SLOW IVP SCH (05:36)
[2017-07-06 06:36] LABS: Anion Gap 16 mmol/L (10-20); BUN (Urea Nitrogen) 98 mg/dL (9.8-20.1); Calc. Creatinine Clearance 15 mL/min (70-130); Calcium 9.2 mg/dL (7.8-10.44); Carbon Dioxide 34 mmol/L (23-31); Chloride 105 mmol/L (98-107); Estimated GFR-MDRD 21
[2017-07-06] MEDS: Metoprolol Tartrate 25 MG TAB PO SCH ×2 (07:31→20:44)
[2017-07-06] MEDS: Cyanocobalamin (Vitamin B-12) 1,000 MCG TAB PO SCH (07:31)
[2017-07-06] MEDS: Folic Acid 1 MG TAB PO SCH (07:31)
[2017-07-06] MEDS: Aspirin 325 MG TAB PO SCH (07:31)
[2017-07-06] MEDS: Aspirin 300 MG Suppository PR SCH (08:11)
[2017-07-06] MEDS: Heparin 5,000 UNITS/ML VIAL SC SCH ×2 (08:12→20:48)
[2017-07-06] MEDS: Famotidine/PF 20 mg/2ml Vial SLOW IVP SCH (08:12)
[2017-07-06] MEDS: Dextrose 5% in Water 1,000 ML IV SCH (08:23)
--- NOTE | 2017-07-06 10:12 | PRG ---
DATE OF SERVICE: 07/06/2017 SUBJECTIVE: Ms. Mcmillan today appears more verbal. She is more awake. No current complaints. She c ontinues antibiotic therapy. PHYSICAL EXAMINATION: VITAL SIGNS: Blood pressure 157/76, pulse 53, temperature 97.8. LUNGS: Rales bilaterally. CARDIAC: Regular rate and rhythm. ABDOMEN: Soft, nontender, nondistended. EXTREMITIES: No edema. PERTINENT LABORATORY DATA: Creatinine 2.23. Peak troponin on 07/02/2017 was 3.4 and decreased to 1 .457 on 07/02/2017. IMPRESSION: 1. Cystitis. 2. Demand ischemia. 3. Elevated troponin. RECOMMENDATIONS: At this point, I would continue conservative therapy. We will review her echo. C ontinue antibiotic treatment. At this point, I do not feel inclined to proceed with a more aggressi ve approach unless her status changes.
--- NOTE | 2017-07-06 11:02 | PRG ---
DATE OF SERVICE: 07/06/2017 SUBJECTIVE: This is an 87-year-old female being seen for acute kidney injury. The patient denies a ny nausea, vomiting or chest pain. PHYSICAL EXAMINATION: GENERAL: Patient is awake, alert. VITAL SIGNS: Afebrile, pulse 52, breathing at 16, blood pressure 157/76. OBJECTIVE: See above. Awake, alert, in no acute distress. GENERAL APPEARANCE AND MENTAL STATUS: Fair. HEAD/NECK: Normocephalic. Atraumatic. EYES: EOMI. No deformity. EARS: Clear. No ulcers. NOSE: Intact. No lesions. MOUTH: Clear. No discharge. THROAT: Clear. No exudate. LUNGS: Clear. No crackles. CARDIAC: S1, S2. No rub. ABDOMEN: Benign. BS+. GENITALIA/RECTUM: Lacy absent. BACK/EXTREMITIES: Edema 0+ Ulcer- NEUROLOGICAL: Alert and motor intact. SKIN: Rash- Bruise- LYMPHATICS: Edema- Ulcer- LABORATORY: Hemoglobin 11.2, potassium 3.5, sodium 151. ASSESSMENT AND RECOMMENDATIONS: 1. Acute kidney injury with chronic kidney disease, stage 4, stable. 2. Hypernatremia. We will change IV fluids to D5 water and recheck sodium in the evening. 3. Hyperkalemia, stable. 4. Medications based on GFR are appropriate. 5. Metabolic alkalosis, stop Lasix.
--- NOTE | 2017-07-06 17:53 | PDOC.PN ---
- Subjective Encounter Start Date: 07/06/17 Encounter Start Time: 10:20 Pt seen for followup re: respiratory failure. Smiles at questions, not answering them. Unable to complete history or ROS. - Objective Resuscitation Status: Resuscitation Status FULL:Full Resuscitation MAR Reviewed: Yes Vital Signs & Weight: Vital Signs (12 hours) Temp Pulse Pulse Pulse Resp BP BP 07/06/17 16:00 97.8 F 62 20 07/06/17 13:43 97 116 H 160/72 H 137/71 07/06/17 07:32 97.8 F 53 L 20 07/06/17 07:19 97.9 F 60 18 BP Pulse Ox 07/06/17 16:00 144/71 H 93 L 07/06/17 13:43 07/06/17 07:32 157/76 H 93 L 07/06/17 07:19 93 L Weight Admit Weight 113 lb 8.608 oz Weight 112 lb 3.2 oz Most Recent Monitor Data Heart Rate from ECG 65 NIBP 158/75 NIBP BP-Mean 85 Respiration from ECG 19 SpO2 94 I&O: 07/05/17 07/06/17 07/07/17 06:59 06:59 06:59 Intake Total 1792 1385 Output Total 2765 2770 Balance -973 -1385 Result Diagrams: 07/03/17 03:47 07/06/17 05:47 EKG Reviewed by me: Yes (Tele: NSR) Phys Exam - Physical Examination Frail-appearing HEENT: moist MMs Neck: supple Respiratory: no wheezing, no rales, no rhonchi, clear to auscultation bilateral Cardiovascular: RRR, no rub Gastrointestinal: soft, positive bowel sounds Musculoskeletal: pulses present Neurological: moves all 4 limbs Psychiatric: normal affect Skin: no rash Dx/Plan (1) Acute respiratory failure Code(s): J96.00 - ACUTE RESPIRATORY FAILURE, UNSP W HYPOXIA OR HYPERCAPNIA Status: Acute (2) NSTEMI (non-ST elevated myocardial infarction) Code(s): I21.4 - NON-ST ELEVATION (NSTEMI) MYOCARDIAL INFARCTION Status: Acute (3) E. coli UTI Code(s): N39.0 - URINARY TRACT INFECTION, SITE NOT SPECIFIED; B96.20 - UNSP ESCHERICHIA COLI THE CAUSE OF DISEASES CLASSD ELSWHR Status: Acute (4) Rhabdomyolysis Code(s): M62.82 - RHABDOMYOLYSIS Status: Acute (5) MARILYN (acute kidney injury) Code(s): N17.9 - ACUTE KIDNEY FAILURE, UNSPECIFIED Status: Acute (6) Hypertension Code(s): I10 - ESSENTIAL (PRIMARY) HYPERTENSION Status: Chronic - Plan continue antibiotics, out of bed/ambulate, DVT proph w/heparin * . Conservative management per cardiology service. High aspiration risk. Continue IV antibiotics as below for E.coli UTI. Await palliative care input. Review of Systems - Medications/Allergies Allergies/Adverse Reactions: Allergies Allergy/AdvReac Type Severity Reaction Status Date / Time No Known Allergies Allergy Verified 02/16/17 11:27 Medications: Current Medications Acetaminophen (Tylenol) 650 mg PO Q4H PRN PRN Reason: Headache/Fever or Pain Acetaminophen (Tylenol) 650 mg [place] Q4H PRN PRN Reason: Headache/Fever or Pain Al Hydroxide/Mg Hydroxide (Maalox) 30 ml PO Q6H PRN PRN Reason: Heartburn or Indigestion Albuterol/Ipratropium (Duoneb) 3 ml NEB [id number] PRN PRN Reason: SOB &/or Wheezing Artificial Tears (Tears Naturale) 0 drop EA EYE PRN PRN PRN Reason: Dry Eyes Aspirin (Aspirin) 300 mg [place] DAILY [facility] Last Admin: 07/06/17 08:11 Dose: 300 mg Aspirin (Aspirin) 325 mg PO DAILY [facility] Last Admin: 07/06/17 07:31 Dose: Not Given Bisacodyl (Dulcolax) 10 mg [place] Q24H PRN PRN Reason: Constipation Cyanocobalamin (Vitamin B-12) 1,000 mcg PO DAILY [facility] Last Admin: 07/06/17 07:31 Dose: Not Given Famotidine (Pepcid) 20 mg SLOW IVP DAILY [facility] Last Admin: 07/06/17 08:12 Dose: 20 mg Folic Acid (Folvite) 1 mg PO DAILY [facility] Last Admin: 07/06/17 07:31 Dose: Not Given Guaifenesin (Robitussin Sf) 200 mg PO Q4H PRN PRN Reason: Cough Heparin Sodium (Porcine) (Heparin) 5,000 units SC BID [facility] Last Admin: 07/06/17 08:12 Dose: 5,000 units Hydralazine HCl (Apresoline) 10 mg SLOW IVP Q4H PRN PRN Reason: Systolic BP > 180 Piperacillin Sod/Tazobactam (Sod 2.25 gm/ Sodium Chloride) 100 mls @ 200 mls/ hr IVPB Q6HR [facility] Last Admin: 07/06/17 11:07 Dose: 100 mls Levofloxacin 500 mg/ Device 100 mls @ 100 mls/hr IVPB Q2D@0900 [facility] Last Admin: 07/06/17 08:12 Dose: 100 mls Dextrose/Water (D5w) 1,000 mls @ 30 mls/hr IV .Q24H [facility] Last Admin: 07/06/17 08:23 Dose: 1,000 mls Loperamide HCl (Imodium) 2 mg PO PRN PRN PRN Reason: Diarrhea/Loose Stools Magnesium Hydroxide (Milk Of Magnesium) 30 ml PO DAILYPRN PRN PRN Reason: Constipation Methylprednisolone Sodium Succinate (Solu-Medrol) 40 mg IVP BID [facility] Last Admin: 07/06/17 08:12 Dose: 40 mg Metoprolol Tartrate (Lopressor) 25 mg PO BID [facility] Last Admin: 07/06/17 07:31 Dose: Not Given Mineral Oil/White Petrolatum (Eucerin Cream) 0 gm TOP BIDPRN PRN PRN Reason: Dry Skin Nitroglycerin (Nitrostat) 0.4 mg SL Q5MIN PRN PRN Reason: Chest Pain Ondansetron HCl (Zofran Odt) 4 mg SL Q6H PRN PRN Reason: Nausea/Vomiting Ondansetron HCl (Zofran) 4 mg IVP Q6H PRN PRN Reason: Nausea/Vomiting Sodium Chloride ([place] Nasal [place] 0.65%) 0 ml EA NARE QIDPRN PRN PRN Reason: Nasal Congestion
--- NOTE | 2017-07-06 18:40 | PRG ---
DATE OF SERVICE: 07/06/2017 SUBJECTIVE: Ms. Mcmillan remains confused. She has a bed alarm arm in place. She is trying to climb over the bed rail when I walked into the room. The nurse was there. OBJECTIVE: SUBJECTIVE: She is afebrile, heart rate is 50, respiratory rate is 20, oximetry is 93, blood pressu re 157/76. LUNGS: Clear. HEART: Regular rhythm. ABDOMEN: Soft. IMPRESSION: 1. Status post mechanical ventilation, clinically stable. 2. Encephalopathy ? decompensated dementia. 3. Cystitis. 4. Intravascular volume depletion, probably on admission with some mild rhabdomyolysis. PLAN: Supportive care and placement. The code status really should be addressed. She apparently h as a ux lead, who helps take care of her, but I cannot imagine that she is capable of continuing to t hannah care of herself. She has a daughter from out of town who on the admission H\T\P said she has be en normal in the recent past, this cannot be confirmed at this time. snf placement will be the next step.
[2017-07-07 05:23] LABS: Anion Gap 20 mmol/L (10-20); BUN (Urea Nitrogen) 85 mg/dL (9.8-20.1); Calc. Creatinine Clearance 16 mL/min (70-130); Calcium 9.4 mg/dL (7.8-10.44); Carbon Dioxide 28 mmol/L (23-31); Chloride 109 mmol/L (98-107); Estimated GFR-MDRD 24
[2017-07-07] MEDS: Piperacillin/Tazobactam 2.25 GM in Sodium Chloride 0.9% 100 ML IVPB SCH ×3 (05:46→17:24)
[2017-07-07] MEDS: Heparin 5,000 UNITS/ML VIAL SC SCH ×2 (08:42→20:35)
[2017-07-07] MEDS: Aspirin 300 MG Suppository PR SCH (08:42)
[2017-07-07] MEDS: Dextrose 5% in Water 1,000 ML IV SCH (08:43)
[2017-07-07] MEDS: Cyanocobalamin (Vitamin B-12) 1,000 MCG TAB PO SCH (08:43)
[2017-07-07] MEDS: Famotidine/PF 20 mg/2ml Vial SLOW IVP SCH (08:43)
[2017-07-07] MEDS: Folic Acid 1 MG TAB PO SCH (08:43)
[2017-07-07] MEDS: Aspirin 325 MG TAB PO SCH (08:43)
[2017-07-07] MEDS: Metoprolol Tartrate 25 MG TAB PO SCH ×2 (08:44→20:35)
--- NOTE | 2017-07-07 12:53 | PRG ---
DATE OF SERVICE: 07/07/2017 Ms. Mcmillan is pleasant and cooperative. She is always smiling. She is minimally verbal. She has n o complaints. PHYSICAL EXAMINATION: VITAL SIGNS: She is afebrile, heart rate 56, respiratory rate 16, oximetry 94, blood pressure 162/7 5. LUNGS: Clear. CARDIOVASCULAR: Regular rhythm. ABDOMEN: Soft. IMPRESSION: 1. Altered mental status secondary most likely to decompensated dementia associated with cystitis. 2. Status post mechanical ventilation for her altered mental status. 3. Intravascular volume depletion and mild rhabdomyolysis on presentation. She is clinically improved. There is no reason to keep her in the Intermediate Care Unit at this po int. Her code status needs to be addressed. She can be transferred out to a medical bed. We will sign off.
--- NOTE | 2017-07-07 14:06 | PRG ---
DATE OF SERVICE: 07/07/2017 SUBJECTIVE: An 87-year-old female being seen for acute kidney injury and hypernatremia. Patient de nies any nausea, vomiting or chest pain. The patient is . OBJECTIVE: GENERAL: Patient is resting. VITAL SIGNS: Afebrile, pulse 85, breathing at 16 and blood pressure 158/78. HEAD/NECK: Normocephalic. Atraumatic. EYES: EOMI. No deformity. EARS: Clear. No ulcers. NOSE: Intact. No lesions. MOUTH: Clear. No discharge. THROAT: Clear. No exudate. LUNGS: Clear. No crackles. CARDIAC: S1, S2. No rub. ABDOMEN: Benign. BS+. GENITALIA/RECTUM: Lacy absent. BACK/EXTREMITIES: Edema 0+. Ulcer-. NEUROLOGICAL: Alert and motor intact. SKIN: Rash-. Bruise-. LYMPHATICS: Edema-. Ulcer-. LABORATORY DATA: Showed sodium is 154. ASSESSMENT AND RECOMMENDATIONS: Hypernatremia: Increase D5 water to 60 mL per hour. Hypokalemia: Would recommend high potassium diet. Uremia, improving. Acute kidney injury, improving. No indic ation for dialysis. The patient has chosen to be on hospice, so I will sign off. Please reconsult as needed.
--- NOTE | 2017-07-07 15:07 | PDOC.PN ---
- Subjective Encounter Start Date: 07/07/17 Encounter Start Time: 10:40 Pt seen for followup re: respiratory failure. Answering questions by nodding or shaking head. - Objective Resuscitation Status: Resuscitation Status FULL:Full Resuscitation MAR Reviewed: Yes Vital Signs & Weight: Vital Signs (12 hours) Temp Pulse Pulse Pulse Resp BP BP 07/07/17 12:00 98.0 F 56 L 16 07/07/17 09:15 68 66 166/87 H 156/81 H 07/07/17 08:00 97.8 F 65 18 07/07/17 07:07 97.8 F 65 18 07/07/17 04:00 98.5 F 64 18 BP Pulse Ox Pulse Ox 07/07/17 12:00 162/75 H 94 L 07/07/17 09:15 95 07/07/17 08:00 99 07/07/17 07:07 167/80 H 99 07/07/17 04:00 158/78 H 99 Weight Admit Weight 113 lb 8.608 oz Weight 107 lb 12.8 oz Most Recent Monitor Data Heart Rate from ECG 65 NIBP 158/75 NIBP BP-Mean 85 Respiration from ECG 19 SpO2 94 I&O: 07/06/17 07/07/17 07/08/17 06:59 06:59 06:59 Intake Total 1385 1320 Output Total 1320 1615 [facility] Result Diagrams: 07/03/17 03:47 07/07/17 04:11 EKG Reviewed by me: Yes (Tele: NSR) Phys Exam - Physical Examination Constitutional: NAD HEENT: moist MMs Neck: supple Respiratory: no wheezing, no rales, no rhonchi, clear to auscultation bilateral Cardiovascular: RRR, no rub Gastrointestinal: soft, positive bowel sounds Musculoskeletal: pulses present Neurological: moves all 4 limbs Psychiatric: normal affect Dx/Plan (1) Acute respiratory failure Code(s): J96.00 - ACUTE RESPIRATORY FAILURE, UNSP W HYPOXIA OR HYPERCAPNIA Status: Acute (2) NSTEMI (non-ST elevated myocardial infarction) Code(s): I21.4 - NON-ST ELEVATION (NSTEMI) MYOCARDIAL INFARCTION Status: Acute (3) E. coli UTI Code(s): N39.0 - URINARY TRACT INFECTION, SITE NOT SPECIFIED; B96.20 - UNSP ESCHERICHIA COLI THE CAUSE OF DISEASES CLASSD ELSWHR Status: Acute (4) Rhabdomyolysis Code(s): M62.82 - RHABDOMYOLYSIS Status: Acute (5) MARILYN (acute kidney injury) Code(s): N17.9 - ACUTE KIDNEY FAILURE, UNSPECIFIED Status: Acute (6) Hypertension Code(s): I10 - ESSENTIAL (PRIMARY) HYPERTENSION Status: Chronic - Plan continue antibiotics, PT/OT, speech therapy, DVT proph w/heparin * . Continue IV antibiotics. Await pall care input. Await swallow eval. Elevated troponin due to ? demand ischemia. Review of Systems - Review of Systems Constitutional: negative: Fever, Chills, Weakness Respiratory: negative: Cough, Shortness of Breath Cardiovascular: negative: Chest Pain, Palpitations Gastrointestinal: negative: Nausea, Vomiting - Medications/Allergies Allergies/Adverse Reactions: Allergies Allergy/AdvReac Type Severity Reaction Status Date / Time No Known Allergies Allergy Verified 02/16/17 11:27 Medications: Current Medications Acetaminophen (Tylenol) 650 mg PO Q4H PRN PRN Reason: Headache/Fever or Pain Acetaminophen (Tylenol) 650 mg [place] Q4H PRN PRN Reason: Headache/Fever or Pain Al Hydroxide/Mg Hydroxide (Maalox) 30 ml PO Q6H PRN PRN Reason: Heartburn or Indigestion Albuterol/Ipratropium (Duoneb) 3 ml NEB [id number] PRN PRN Reason: SOB &/or Wheezing Artificial Tears (Tears Naturale) 0 drop EA EYE PRN PRN PRN Reason: Dry Eyes Aspirin (Aspirin) 300 mg [place] DAILY [facility] Last Admin: 07/07/17 08:42 Dose: 300 mg Aspirin (Aspirin) 325 mg PO DAILY [facility] Last Admin: 07/07/17 08:43 Dose: Not Given Bisacodyl (Dulcolax) 10 mg [place] Q24H PRN PRN Reason: Constipation Cyanocobalamin (Vitamin B-12) 1,000 mcg PO DAILY [facility] Last Admin: 07/07/17 08:43 Dose: Not Given Famotidine (Pepcid) 20 mg SLOW IVP DAILY [facility] Last Admin: 07/07/17 08:43 Dose: 20 mg Folic Acid (Folvite) 1 mg PO DAILY [facility] Last Admin: 07/07/17 08:43 Dose: Not Given Guaifenesin (Robitussin Sf) 200 mg PO Q4H PRN PRN Reason: Cough Heparin Sodium (Porcine) (Heparin) 5,000 units SC BID [facility] Last Admin: 07/07/17 08:42 Dose: 5,000 units Hydralazine HCl (Apresoline) 10 mg SLOW IVP Q4H PRN PRN Reason: Systolic BP > 180 Piperacillin Sod/Tazobactam (Sod 2.25 gm/ Sodium Chloride) 100 mls @ 200 mls/ hr IVPB Q6HR [facility] Last Admin: 07/07/17 11:22 Dose: 100 mls Levofloxacin 500 mg/ Device 100 mls @ 100 mls/hr IVPB Q2D@0900 [facility] Last Admin: 07/06/17 08:12 Dose: 100 mls Dextrose/Water (D5w) 1,000 mls @ 30 mls/hr IV .Q24H [facility] Last Admin: 07/07/17 08:43 Dose: 1,000 mls Loperamide HCl (Imodium) 2 mg PO PRN PRN PRN Reason: Diarrhea/Loose Stools Magnesium Hydroxide (Milk Of Magnesium) 30 ml PO DAILYPRN PRN PRN Reason: Constipation Methylprednisolone Sodium Succinate (Solu-Medrol) 40 mg IVP BID [facility] Last Admin: 07/07/17 08:44 Dose: 40 mg Metoprolol Tartrate (Lopressor) 25 mg PO BID [facility] Last Admin: 07/07/17 08:44 Dose: Not Given Mineral Oil/White Petrolatum (Eucerin Cream) 0 gm TOP BIDPRN PRN PRN Reason: Dry Skin Nitroglycerin (Nitrostat) 0.4 mg SL Q5MIN PRN PRN Reason: Chest Pain Ondansetron HCl (Zofran Odt) 4 mg SL Q6H PRN PRN Reason: Nausea/Vomiting Ondansetron HCl (Zofran) 4 mg IVP Q6H PRN PRN Reason: Nausea/Vomiting Sodium Chloride ([place] Nasal [place] 0.65%) 0 ml EA NARE QIDPRN PRN PRN Reason: Nasal Congestion
[2017-07-07 16:51] LABS: Anion Gap 19 mmol/L (10-20); BUN (Urea Nitrogen) 74 mg/dL (9.8-20.1); Calc. Creatinine Clearance 18 mL/min (70-130); Calcium 9.3 mg/dL (7.8-10.44); Carbon Dioxide 29 mmol/L (23-31); Chloride 108 mmol/L (98-107); Estimated GFR-MDRD 27
[2017-07-07] MEDS ORDERED: Dextrose 5% w/ 20 mEq KCl 1,000 ML IV SCH (17:30)
[2017-07-08] MEDS: Piperacillin/Tazobactam 2.25 GM in Sodium Chloride 0.9% 100 ML IVPB SCH ×5 (00:21→23:44)
[2017-07-08] MEDS: Dextrose 5% w/ 20 mEq KCl 1,000 ML IV SCH ×2 (00:42→11:38)
[2017-07-08 04:47] LABS: Anion Gap 16 mmol/L (10-20); BUN (Urea Nitrogen) 65 mg/dL (9.8-20.1); Calc. Creatinine Clearance 21 mL/min (70-130); Calcium 8.9 mg/dL (7.8-10.44); Carbon Dioxide 30 mmol/L (23-31); Chloride 109 mmol/L (98-107); Estimated GFR-MDRD 33
[2017-07-08] MEDS ORDERED: Dextrose 5% in Water 1,000 ML IV SCH (06:45)
[2017-07-08] MEDS: Aspirin 325 MG TAB PO SCH (08:23)
[2017-07-08] MEDS: Folic Acid 1 MG TAB PO SCH (08:23)
[2017-07-08] MEDS: Famotidine/PF 20 mg/2ml Vial SLOW IVP SCH (08:24)
[2017-07-08] MEDS: Aspirin 300 MG Suppository PR SCH (08:24)
[2017-07-08] MEDS: Cyanocobalamin (Vitamin B-12) 1,000 MCG TAB PO SCH (08:24)
[2017-07-08] MEDS: Metoprolol Tartrate 25 MG TAB PO SCH ×2 (08:24→19:59)
[2017-07-08] MEDS: Heparin 5,000 UNITS/ML VIAL SC SCH ×2 (08:25→20:46)
--- NOTE | 2017-07-08 10:05 | PDOC.PN ---
- Subjective Encounter Start Date: 07/08/17 Encounter Start Time: 07:00 Pt seen for followup re; hypokalemia. Says she feels better. Denies chest pain , shortness of breath, fevers or chills. - Objective Resuscitation Status: Resuscitation Status FULL:Full Resuscitation MAR Reviewed: Yes Vital Signs & Weight: Vital Signs (12 hours) Temp Pulse Resp BP Pulse Ox 07/08/17 07:25 97.7 F 50 L 16 176/81 H 96 07/08/17 03:59 98.1 F 45 L 16 157/70 H 97 07/07/17 23:42 97.4 F L 58 L 16 185/85 H 95 Weight Admit Weight 113 lb 8.608 oz Weight 116 lb 14.4 oz Most Recent Monitor Data Heart Rate from ECG 65 NIBP 158/75 NIBP BP-Mean 85 Respiration from ECG 19 SpO2 94 I&O: 07/07/17 07/08/17 07/09/17 06:59 06:59 06:59 Intake Total 1320 1800 Output Total 3325 1550 Balance -2004 250 Result Diagrams: 07/03/17 03:47 07/08/17 03:44 Phys Exam - Physical Examination Constitutional: NAD HEENT: moist MMs, oral pharynx no lesions Neck: supple Respiratory: no wheezing, no rales, no rhonchi, clear to auscultation bilateral Cardiovascular: RRR, no rub Gastrointestinal: soft, positive bowel sounds Musculoskeletal: pulses present Neurological: moves all 4 limbs Deviation from normal: oriented to person, knows she is in a hospital, not oriented to time/town Dx/Plan (1) Hypokalemia Code(s): E87.6 - HYPOKALEMIA Status: Acute (2) Demand ischemia of myocardium Code(s): I24.8 - OTHER FORMS OF ACUTE ISCHEMIC HEART DISEASE Status: Acute (3) Acute respiratory failure Code(s): J96.00 - ACUTE RESPIRATORY FAILURE, UNSP W HYPOXIA OR HYPERCAPNIA Status: Acute (4) E. coli UTI Code(s): N39.0 - URINARY TRACT INFECTION, SITE NOT SPECIFIED; B96.20 - UNSP ESCHERICHIA COLI THE CAUSE OF DISEASES CLASSD ELSWHR Status: Acute (5) MARILYN (acute kidney injury) Code(s): N17.9 - ACUTE KIDNEY FAILURE, UNSPECIFIED Status: Acute (6) Hypertension Code(s): I10 - ESSENTIAL (PRIMARY) HYPERTENSION Status: Chronic - Plan continue antibiotics, DVT proph w/heparin * . replace potassium. Aspiration risk. Needs discharge planning. Continue antibiotics. Review of Systems - Medications/Allergies Allergies/Adverse Reactions: Allergies Allergy/AdvReac Type Severity Reaction Status Date / Time No Known Allergies Allergy Verified 02/16/17 11:27 Medications: Current Medications Acetaminophen (Tylenol) 650 mg PO Q4H PRN PRN Reason: Headache/Fever or Pain Acetaminophen (Tylenol) 650 mg [place] Q4H PRN PRN Reason: Headache/Fever or Pain Al Hydroxide/Mg Hydroxide (Maalox) 30 ml PO Q6H PRN PRN Reason: Heartburn or Indigestion Albuterol/Ipratropium (Duoneb) 3 ml NEB A4LE-DL PRN PRN Reason: SOB &/or Wheezing Artificial Tears (Tears Naturale) 0 drop EA EYE PRN PRN PRN Reason: Dry Eyes Aspirin (Aspirin) 300 mg [place] DAILY [facility] Last Admin: 07/08/17 08:24 Dose: Not Given Aspirin (Aspirin) 325 mg PO DAILY [facility] Last Admin: 07/08/17 08:23 Dose: 325 mg Bisacodyl (Dulcolax) 10 mg [place] Q24H PRN PRN Reason: Constipation Cyanocobalamin (Vitamin B-12) 1,000 mcg PO DAILY [facility] Last Admin: 07/08/17 08:24 Dose: 1,000 mcg Famotidine (Pepcid) 20 mg SLOW IVP DAILY [facility] Last Admin: 07/08/17 08:24 Dose: 20 mg Folic Acid (Folvite) 1 mg PO DAILY [facility] Last Admin: 07/08/17 08:23 Dose: 1 mg Guaifenesin (Robitussin Sf) 200 mg PO Q4H PRN PRN Reason: Cough Heparin Sodium (Porcine) (Heparin) 5,000 units SC BID [facility] Last Admin: 07/08/17 08:25 Dose: 5,000 units Hydralazine HCl (Apresoline) 10 mg SLOW IVP Q4H PRN PRN Reason: Systolic BP > 180 Piperacillin Sod/Tazobactam (Sod 2.25 gm/ Sodium Chloride) 100 mls @ 200 mls/ hr IVPB Q6HR [facility] Last Admin: 07/08/17 05:53 Dose: 100 mls Levofloxacin 500 mg/ Device 100 mls @ 100 mls/hr IVPB Q2D@0900 [facility] Last Admin: 07/08/17 08:24 Dose: 100 mls Potassium Chloride/Dextrose (D5w W/ 20 Meq Kcl) 1,000 mls @ 75 mls/hr IV .[id number] [facility] Last Admin: 07/08/17 00:42 Dose: Not Given Loperamide HCl (Imodium) 2 mg PO PRN PRN PRN Reason: Diarrhea/Loose Stools Magnesium Hydroxide (Milk Of Magnesium) 30 ml PO DAILYPRN PRN PRN Reason: Constipation Methylprednisolone Sodium Succinate (Solu-Medrol) 40 mg IVP BID [facility] Last Admin: 07/08/17 08:24 Dose: 40 mg Metoprolol Tartrate (Lopressor) 25 mg PO BID [facility] Last Admin: 07/08/17 08:24 Dose: 25 mg Mineral Oil/White Petrolatum (Eucerin Cream) 0 gm TOP BIDPRN PRN PRN Reason: Dry Skin Nitroglycerin (Nitrostat) 0.4 mg SL Q5MIN PRN PRN Reason: Chest Pain Ondansetron HCl (Zofran Odt) 4 mg SL Q6H PRN PRN Reason: Nausea/Vomiting Ondansetron HCl (Zofran) 4 mg IVP Q6H PRN PRN Reason: Nausea/Vomiting Potassium Chloride (K-Dur) 40 meq PO Q4H [facility] Stop: 07/08/17 18:16 Sodium Chloride ([place] Nasal [place] 0.65%) 0 ml EA NARE QIDPRN PRN PRN Reason: Nasal Congestion
[2017-07-08] MEDS ORDERED: Potassium Chloride 20 MEQ TAB PO SCH (10:15)
--- NOTE | 2017-07-08 10:19 | PRG ---
DATE OF SERVICE: 07/08/2017 SUBJECTIVE: An 87-year-old female being seen for acute kidney injury and hypernatremia. The patien t is nonverbal. PHYSICAL EXAMINATION: GENERAL: Patient is resting. VITAL SIGNS: Afebrile, pulse 50, breathing at 16, blood pressure 157/70. OBJECTIVE: See above. Awake, alert, in no acute distress. GENERAL APPEARANCE AND MENTAL STATUS: Fair. HEAD/NECK: Normocephalic. Atraumatic. EYES: EOMI. No deformity. EARS: Clear. No ulcers. NOSE: Intact. No lesions. MOUTH: Clear. No discharge. THROAT: Clear. No exudate. LUNGS: Clear. No crackles. CARDIAC: S1, S2. No rub. ABDOMEN: Benign. BS+. GENITALIA/RECTUM: Lacy absent. BACK/EXTREMITIES: Edema 0+ Ulcer- NEUROLOGICAL: Alert and motor intact. SKIN: Rash- Bruise- LYMPHATICS: Edema- Ulcer- LABORATORY: Sodium 152, potassium 2.7, creatinine 1.5. ASSESSMENT AND PLAN: 1. Acute kidney injury, improving, chronic kidney disease stage 3, stable. 2. Hypokalemia, would recommend 40 mEq of potassium now and recheck potassium in 3-4 hours. 3. Hyponatremia. Continue D5 water. Sodium should be around 145. I will sign off on this patient. Please reconsult as needed.
[2017-07-08 10:37] LABS: Hematocrit 40.1 % (36.0-47.0); Mean Platelet Volume 8.5 fL (7.4-10.4); Red Blood Cell (RBC) Count 3.96 mill/uL (4.20-5.40); White Blood Cell (WBC) Count 18.8 thou/uL (4.8-10.8)
[2017-07-08 11:05] LABS: Band 3 % (5-11); Metamyelocyte 3 % (0-0); Myelocyte 2 % (0-0); Neutrophil 81 % (42-75); Reactive Lymphocytes 1 % (0-10)
[2017-07-08] MEDS: Potassium Chloride 20 MEQ TAB PO SCH ×3 (11:50→20:47)
--- NOTE | 2017-07-08 13:11 | PDOC.CTH ---
Cardiology Progress Note - Subjective Patient seen and examined. Reports feeling better and "just wants to go home". She denies any CP, pressure, or SOB. - Objective Vital Signs Temp Pulse Resp BP Pulse Ox 07/08/17 11:54 97.7 F 50 L 18 148/76 H 96 07/08/17 08:00 97.7 F 50 L 16 96 07/08/17 07:25 97.7 F 50 L 16 176/81 H 96 07/08/17 03:59 98.1 F 45 L 16 157/70 H 97 Admit Weight 113 lb 8.608 oz Weight 116 lb 14.4 oz 07/07/17 07/08/17 07/09/17 06:59 06:59 06:59 Intake Total 1320 1800 Output Total 3325 1550 16 250 -16 - Physical Examination General/Neuro: NAD, other: (alert to person only) Neck: no JVD present Lungs: CTA, unlabored respirations Heart: RRR Abdomen: NT/ND, soft, other: (active BS) Extremities: other: (no edema) - Labs Result Diagrams: 07/08/17 10:22 07/08/17 03:44 Troponin/CKMB CK-MB (CK-2) 12.1 ng/mL (0-6.6) H* 07/02/17 21:12 Troponin I 1.457 ng/mL (< 0.028) H* 07/02/17 21:12 - Assessment/Plan 1. Demand ischemia 2. Acute on chronic diastolic heart failure. 3. MARILYN on CKD. PLAN: Ms. Mcmillan remains symptom free and is stable from a CV standpoint.We will continue conservative medical therapies. No further CV recommendations.
[2017-07-08] MEDS ORDERED: Haloperidol Lactate 5 MG/ML VIAL IM SCH (14:45)
[2017-07-08] MEDS ORDERED: Lorazepam 2 MG/ML VIAL SLOW IVP SCH (15:00)
[2017-07-08 16:42] LABS: Anion Gap 14 mmol/L (10-20); BUN (Urea Nitrogen) 62 mg/dL (9.8-20.1); Calc. Creatinine Clearance 23 mL/min (70-130); Carbon Dioxide 33 mmol/L (23-31); Chloride 106 mmol/L (98-107); Estimated GFR-MDRD 33
[2017-07-09] MEDS: Dextrose 5% w/ 20 mEq KCl 1,000 ML IV SCH ×2 (01:30→15:47)
[2017-07-09 04:46] LABS: Anion Gap 12 mmol/L (10-20); BUN (Urea Nitrogen) 52 mg/dL (9.8-20.1); Calc. Creatinine Clearance 28 mL/min (70-130); Calcium 8.7 mg/dL (7.8-10.44); Carbon Dioxide 27 mmol/L (23-31); Chloride 110 mmol/L (98-107); Estimated GFR-MDRD 41; Magnesium 2.1 mg/dL (1.6-2.6)
[2017-07-09 04:58] LABS: Band 2 % (5-11); Hematocrit 39.7 % (36.0-47.0); Mean Platelet Volume 8.6 fL (7.4-10.4); Neutrophil 91 % (42-75); Red Blood Cell (RBC) Count 3.94 mill/uL (4.20-5.40); White Blood Cell (WBC) Count 21.4 thou/uL (4.8-10.8)
[2017-07-09] MEDS: Piperacillin/Tazobactam 2.25 GM in Sodium Chloride 0.9% 100 ML IVPB SCH (06:00)
[2017-07-09] MEDS ORDERED: predniSONE 50 MG TAB PO SCH (09:15)
[2017-07-09] MEDS: Folic Acid 1 MG TAB PO SCH (10:04)
[2017-07-09] MEDS: Aspirin 325 MG TAB PO SCH (10:04)
[2017-07-09] MEDS: Cyanocobalamin (Vitamin B-12) 1,000 MCG TAB PO SCH (10:05)
[2017-07-09] MEDS: Metoprolol Tartrate 25 MG TAB PO SCH (10:05)
[2017-07-09] MEDS: Heparin 5,000 UNITS/ML VIAL SC SCH ×2 (10:06→20:44)
[2017-07-09] MEDS: Aspirin 300 MG Suppository PR SCH (10:06)
[2017-07-09] MEDS: Famotidine/PF 20 mg/2ml Vial SLOW IVP SCH (10:06)
--- NOTE | 2017-07-09 14:37 | PDOC.PN ---
- Subjective Encounter Start Date: 07/09/17 Encounter Start Time: 14:36 Pt seen for followup re: bradycardia. Smiling, not answering questions, unable to obtain ROS. - Objective Resuscitation Status: Resuscitation Status FULL:Full Resuscitation MAR Reviewed: Yes Vital Signs & Weight: Vital Signs (12 hours) Temp Pulse Resp BP Pulse Ox 07/09/17 11:30 97.5 F L 49 L 16 144/73 H 92 L 07/09/17 08:00 97.3 F L 60 16 94 L 07/09/17 07:35 97.3 F L 60 16 142/62 H 94 L 07/09/17 04:00 46 L 166/76 H 07/09/17 03:27 98.0 F 43 L 16 202/95 H 94 L Weight Admit Weight 113 lb 8.608 oz Weight 114 lb 6.4 oz Most Recent Monitor Data Heart Rate from ECG 65 NIBP 158/75 NIBP BP-Mean 85 Respiration from ECG 19 SpO2 94 I&O: 07/08/17 07/09/17 07/10/17 06:59 06:59 06:59 Intake Total 1800 1525 1450 Output Total 1550 616 475 Balance 250 909 975 Result Diagrams: 07/09/17 04:14 07/09/17 04:14 Phys Exam - Physical Examination Constitutional: NAD HEENT: moist MMs, oral pharynx no lesions Neck: supple Respiratory: no wheezing, no rales, no rhonchi, clear to auscultation bilateral S1, S2, amador Gastrointestinal: soft, positive bowel sounds Musculoskeletal: pulses present Neurological: moves all 4 limbs Psychiatric: normal affect Dx/Plan (1) Bradycardia Code(s): R00.1 - BRADYCARDIA, UNSPECIFIED Status: Acute (2) Demand ischemia of myocardium Code(s): I24.8 - OTHER FORMS OF ACUTE ISCHEMIC HEART DISEASE Status: Acute (3) Acute respiratory failure Code(s): J96.00 - ACUTE RESPIRATORY FAILURE, UNSP W HYPOXIA OR HYPERCAPNIA Status: Acute (4) E. coli UTI Code(s): N39.0 - URINARY TRACT INFECTION, SITE NOT SPECIFIED; B96.20 - UNSP ESCHERICHIA COLI THE CAUSE OF DISEASES CLASSD ELSWHR Status: Acute (5) MARILYN (acute kidney injury) Code(s): N17.9 - ACUTE KIDNEY FAILURE, UNSPECIFIED Status: Acute (6) Hypertension Code(s): I10 - ESSENTIAL (PRIMARY) HYPERTENSION Status: Chronic (7) Hypokalemia Code(s): E87.6 - HYPOKALEMIA Status: Resolved - Plan continue antibiotics, PT/OT, out of bed/ambulate, DVT proph w/heparin Discontinue beta maury, EF 55-60%. Leucocytosis likely due to steroid use, step down to oral steroids. Step down to oral antibiotics. Pt has been accepted to SNU, likely transfer over the weekend once bradycardia and leucocytosis improve. * . Review of Systems - Medications/Allergies Allergies/Adverse Reactions: Allergies Allergy/AdvReac Type Severity Reaction Status Date / Time No Known Allergies Allergy Verified 02/16/17 11:27 Medications: Current Medications Acetaminophen (Tylenol) 650 mg PO Q4H PRN PRN Reason: Headache/Fever or Pain Acetaminophen (Tylenol) 650 mg [place] Q4H PRN PRN Reason: Headache/Fever or Pain Al Hydroxide/Mg Hydroxide (Maalox) 30 ml PO Q6H PRN PRN Reason: Heartburn or Indigestion Albuterol/Ipratropium (Duoneb) 3 ml NEB [id number] PRN PRN Reason: SOB &/or Wheezing Artificial Tears (Tears Naturale) 0 drop EA EYE PRN PRN PRN Reason: Dry Eyes Aspirin (Aspirin) 300 mg [place] DAILY [facility] Last Admin: 07/09/17 10:06 Dose: Not Given Aspirin (Aspirin) 325 mg PO DAILY [facility] Last Admin: 07/09/17 10:04 Dose: 325 mg Bisacodyl (Dulcolax) 10 mg [place] Q24H PRN PRN Reason: Constipation Cyanocobalamin (Vitamin B-12) 1,000 mcg PO DAILY [facility] Last Admin: 07/09/17 10:05 Dose: 1,000 mcg Famotidine (Pepcid) 20 mg SLOW IVP DAILY [facility] Last Admin: 07/09/17 10:06 Dose: 20 mg Folic Acid (Folvite) 1 mg PO DAILY [facility] Last Admin: 07/09/17 10:04 Dose: 1 mg Guaifenesin (Robitussin Sf) 200 mg PO Q4H PRN PRN Reason: Cough Heparin Sodium (Porcine) (Heparin) 5,000 units SC BID [facility] Last Admin: 07/09/17 10:06 Dose: 5,000 units Hydralazine HCl (Apresoline) 10 mg SLOW IVP Q4H PRN PRN Reason: Systolic BP > 180 Potassium Chloride/Dextrose (D5w W/ 20 Meq Kcl) 1,000 mls @ 75 mls/hr IV .[id number] [facility] Last Admin: 07/09/17 01:30 Dose: 1,000 mls Loperamide HCl (Imodium) 2 mg PO PRN PRN PRN Reason: Diarrhea/Loose Stools Magnesium Hydroxide (Milk Of Magnesium) 30 ml PO DAILYPRN PRN PRN Reason: Constipation Metoprolol Tartrate (Lopressor) 12.5 mg PO BID [facility] Mineral Oil/White Petrolatum (Eucerin Cream) 0 gm TOP BIDPRN PRN PRN Reason: Dry Skin Nitroglycerin (Nitrostat) 0.4 mg SL Q5MIN PRN PRN Reason: Chest Pain Ondansetron HCl (Zofran Odt) 4 mg SL Q6H PRN PRN Reason: Nausea/Vomiting Ondansetron HCl (Zofran) 4 mg IVP Q6H PRN PRN Reason: Nausea/Vomiting Prednisone (Prednisone) 50 mg PO QAM-WM [facility] Stop: 07/12/17 08:01 Prednisone (Prednisone) 40 mg PO QAM-WM [facility] Stop: 07/16/17 08:01 Prednisone (Prednisone) 30 mg PO QAM-WM [facility] Stop: 07/20/17 08:01 Prednisone (Prednisone) 20 mg PO QAM-WM [facility] Stop: 07/24/17 08:01 Prednisone (Prednisone) 10 mg PO QAM-WM [facility] Stop: 07/28/17 08:01 Sodium Chloride ([place] Nasal [place] 0.65%) 0 ml EA NARE QIDPRN PRN PRN Reason: Nasal Congestion
[2017-07-09] MEDS ORDERED: Metoprolol Tartrate 25 MG TAB PO SCH (21:00)
[2017-07-10 07:01] LABS: Anion Gap 10 mmol/L (10-20); BUN (Urea Nitrogen) 40 mg/dL (9.8-20.1); Calc. Creatinine Clearance 34 mL/min (70-130); Calcium 8.5 mg/dL (7.8-10.44); Carbon Dioxide 23 mmol/L (23-31); Chloride 107 mmol/L (98-107); Estimated GFR-MDRD 54
[2017-07-10 07:06] LABS: Band 3 % (5-11); Hematocrit 44.6 % (36.0-47.0); Mean Platelet Volume 8.4 fL (7.4-10.4); Neutrophil 87 % (42-75); Red Blood Cell (RBC) Count 4.38 mill/uL (4.20-5.40); White Blood Cell (WBC) Count 32.3 thou/uL (4.8-10.8)
[2017-07-10] MEDS: Aspirin 325 MG TAB PO SCH (11:24)
[2017-07-10] MEDS: predniSONE 50 MG TAB PO SCH (11:24)
[2017-07-10] MEDS: Heparin 5,000 UNITS/ML VIAL SC SCH ×2 (11:24→21:17)
[2017-07-10] MEDS: Cyanocobalamin (Vitamin B-12) 1,000 MCG TAB PO SCH (11:24)
[2017-07-10] MEDS: Folic Acid 1 MG TAB PO SCH (11:24)
[2017-07-10] MEDS: Famotidine/PF 20 mg/2ml Vial SLOW IVP SCH (11:25)
[2017-07-10] MEDS: Dextrose 5% w/ 20 mEq KCl 1,000 ML IV SCH (11:25)
[2017-07-10] MEDS: Aspirin 300 MG Suppository PR SCH (11:25)
--- NOTE | 2017-07-10 12:19 | PDOC.PN ---
- Subjective Encounter Start Date: 07/10/17 Encounter Start Time: 07:00 Pt seen for followup re: bradycardia. Sleepy but arousable, not answering questions, unable to obtain ROS. - Objective Resuscitation Status: Resuscitation Status FULL:Full Resuscitation MAR Reviewed: Yes Vital Signs & Weight: Vital Signs (12 hours) Temp Pulse Resp BP Pulse Ox 07/10/17 11:26 49 L 07/10/17 07:56 97.9 F 49 L 18 186/84 H 98 07/10/17 00:56 97 Weight Admit Weight 113 lb 8.608 oz Weight 114 lb 6.4 oz Most Recent Monitor Data Heart Rate from ECG 65 NIBP 158/75 NIBP BP-Mean 85 Respiration from ECG 19 SpO2 94 I&O: 07/09/17 07/10/17 07/11/17 06:59 06:59 06:59 Intake Total 1525 2850 Output Total 616 1450 Balance 909 1400 Result Diagrams: 07/10/17 06:31 07/10/17 06:31 Phys Exam - Physical Examination Constitutional: NAD HEENT: moist MMs Neck: supple Respiratory: clear to auscultation bilateral Cardiovascular: RRR, no rub Gastrointestinal: soft, positive bowel sounds Musculoskeletal: pulses present Neurological: moves all 4 limbs Psychiatric: normal affect Skin: no rash Dx/Plan (1) Bradycardia Code(s): R00.1 - BRADYCARDIA, UNSPECIFIED Status: Acute (2) Demand ischemia of myocardium Code(s): I24.8 - OTHER FORMS OF ACUTE ISCHEMIC HEART DISEASE Status: Acute (3) Acute respiratory failure Code(s): J96.00 - ACUTE RESPIRATORY FAILURE, UNSP W HYPOXIA OR HYPERCAPNIA Status: Acute (4) E. coli UTI Code(s): N39.0 - URINARY TRACT INFECTION, SITE NOT SPECIFIED; B96.20 - UNSP ESCHERICHIA COLI THE CAUSE OF DISEASES CLASSD ELSWHR Status: Acute (5) MARILYN (acute kidney injury) Code(s): N17.9 - ACUTE KIDNEY FAILURE, UNSPECIFIED Status: Acute (6) Hypertension Code(s): I10 - ESSENTIAL (PRIMARY) HYPERTENSION Status: Chronic (7) Hypokalemia Code(s): E87.6 - HYPOKALEMIA Status: Resolved - Plan * .Bradycardia improving, beta maury stopped. Worsening leucocytosis, unclear whether due to steroids vs. infection. Will start pt on levofloxacin. Likely to SNU 1-2 days. Review of Systems - Medications/Allergies Allergies/Adverse Reactions: Allergies Allergy/AdvReac Type Severity Reaction Status Date / Time No Known Allergies Allergy Verified 02/16/17 11:27 Medications: Current Medications Acetaminophen (Tylenol) 650 mg PO Q4H PRN PRN Reason: Headache/Fever or Pain Acetaminophen (Tylenol) 650 mg [place] Q4H PRN PRN Reason: Headache/Fever or Pain Al Hydroxide/Mg Hydroxide (Maalox) 30 ml PO Q6H PRN PRN Reason: Heartburn or Indigestion Albuterol/Ipratropium (Duoneb) 3 ml NEB [id number] PRN PRN Reason: SOB &/or Wheezing Amlodipine Besylate (Norvasc) 5 mg PO DAILY [facility] Artificial Tears (Tears Naturale) 0 drop EA EYE PRN PRN PRN Reason: Dry Eyes Aspirin (Aspirin) 300 mg [place] DAILY [facility] Last Admin: 07/10/17 11:25 Dose: Not Given Aspirin (Aspirin) 325 mg PO DAILY [facility] Last Admin: 07/10/17 11:24 Dose: 325 mg Bisacodyl (Dulcolax) 10 mg [place] Q24H PRN PRN Reason: Constipation Cyanocobalamin (Vitamin B-12) 1,000 mcg PO DAILY [facility] Last Admin: 07/10/17 11:24 Dose: 1,000 mcg Famotidine (Pepcid) 20 mg SLOW IVP DAILY [facility] Last Admin: 07/10/17 11:25 Dose: Not Given Folic Acid (Folvite) 1 mg PO DAILY [facility] Last Admin: 07/10/17 11:24 Dose: 1 mg Guaifenesin (Robitussin Sf) 200 mg PO Q4H PRN PRN Reason: Cough Heparin Sodium (Porcine) (Heparin) 5,000 units SC BID [facility] Last Admin: 07/10/17 11:24 Dose: 5,000 units Hydralazine HCl (Apresoline) 10 mg SLOW IVP Q4H PRN PRN Reason: Systolic BP > 180 Potassium Chloride/Dextrose (D5w W/ 20 Meq Kcl) 1,000 mls @ 75 mls/hr IV .[id number] [facility] Last Admin: 07/10/17 11:25 Dose: Not Given Loperamide HCl (Imodium) 2 mg PO PRN PRN PRN Reason: Diarrhea/Loose Stools Magnesium Hydroxide (Milk Of Magnesium) 30 ml PO DAILYPRN PRN PRN Reason: Constipation Mineral Oil/White Petrolatum (Eucerin Cream) 0 gm TOP BIDPRN PRN PRN Reason: Dry Skin Nitroglycerin (Nitrostat) 0.4 mg SL Q5MIN PRN PRN Reason: Chest Pain Ondansetron HCl (Zofran Odt) 4 mg SL Q6H PRN PRN Reason: Nausea/Vomiting Ondansetron HCl (Zofran) 4 mg IVP Q6H PRN PRN Reason: Nausea/Vomiting Prednisone (Prednisone) 50 mg PO QAM-WM [facility] Stop: 07/12/17 08:01 Last Admin: 07/10/17 11:24 Dose: 50 mg Prednisone (Prednisone) 40 mg PO QAM-WM [facility] Stop: 07/16/17 08:01 Prednisone (Prednisone) 30 mg PO QAM-WM [facility] Stop: 07/20/17 08:01 Prednisone (Prednisone) 20 mg PO QAM-WM [facility] Stop: 07/24/17 08:01 Prednisone (Prednisone) 10 mg PO QAM-WM [facility] Stop: 07/28/17 08:01 Sodium Chloride ([place] Nasal [place] 0.65%) 0 ml EA NARE QIDPRN PRN PRN Reason: Nasal Congestion
[2017-07-10 19:49] LABS: Hematocrit 38.7 % (36.0-47.0)
[2017-07-11 04:29] LABS: Band 1 % (5-11); Hematocrit 39.9 % (36.0-47.0); Neutrophil 91 % (42-75); White Blood Cell (WBC) Count 27.9 thou/uL (4.8-10.8)
[2017-07-11 04:30] LABS: Anion Gap 14 mmol/L (10-20); BUN (Urea Nitrogen) 39 mg/dL (9.8-20.1); Calc. Creatinine Clearance 29 mL/min (70-130); Calcium 8.5 mg/dL (7.8-10.44); Carbon Dioxide 22 mmol/L (23-31); Chloride 108 mmol/L (98-107); Estimated GFR-MDRD 44
[2017-07-11] MEDS: predniSONE 50 MG TAB PO SCH (08:39)
[2017-07-11] MEDS: Aspirin 325 MG TAB PO SCH (08:40)
[2017-07-11] MEDS: Famotidine 20 MG TAB PO SCH (08:41)
[2017-07-11] MEDS: Cyanocobalamin (Vitamin B-12) 1,000 MCG TAB PO SCH (08:41)
[2017-07-11] MEDS: Folic Acid 1 MG TAB PO SCH (08:41)
[2017-07-11] MEDS: Heparin 5,000 UNITS/ML VIAL SC SCH ×2 (08:41→21:31)
--- NOTE | 2017-07-11 10:49 | PDOC.PN ---
- Subjective Encounter Start Date: 07/11/17 Encounter Start Time: 10:47 Patient seen and examined, when asked how she is doing she states "go to hell" and then stopped answering questions, per staff no major issues overnight. No family at bedside. - Objective Resuscitation Status: Resuscitation Status FULL:Full Resuscitation Vital Signs & Weight: Vital Signs (12 hours) Temp Pulse Resp BP BP Pulse Ox 07/11/17 08:42 70 174/77 H 07/11/17 07:59 96.6 F L 70 18 174/77 H 98 07/11/17 04:32 94 L 07/11/17 04:00 98.7 F 74 16 130/73 94 L 07/10/17 23:51 98.6 F 77 16 126/64 98 Weight Admit Weight 113 lb 8.608 oz Weight 129 lb 3.2 oz Most Recent Monitor Data Heart Rate from ECG 65 NIBP 158/75 NIBP BP-Mean 85 Respiration from ECG 19 SpO2 94 I&O: 07/10/17 07/11/17 07/12/17 06:59 06:59 06:59 Intake Total 2850 2270 Output Total 1450 1100 Balance 1400 1170 Result Diagrams: 07/11/17 03:34 07/11/17 03:34 Phys Exam - Physical Examination Constitutional: NAD HEENT: PERRLA, moist MMs, sclera anicteric Neck: no nodes, no JVD Respiratory: no wheezing, no rales Cardiovascular: RRR, no significant murmur, no rub Gastrointestinal: soft, non-tender Musculoskeletal: pulses present, edema present (trace) Neurological: non-focal, normal sensation Psychiatric: normal affect Deviation from normal: AAO to person and place Skin: normal turgor, cap refill <2 seconds Dx/Plan (1) MARILYN (acute kidney injury) Code(s): N17.9 - ACUTE KIDNEY FAILURE, UNSPECIFIED Status: Acute (2) E. coli UTI Code(s): N39.0 - URINARY TRACT INFECTION, SITE NOT SPECIFIED; B96.20 - UNSP ESCHERICHIA COLI THE CAUSE OF DISEASES CLASSD ELSWHR Status: Acute (3) CAD (coronary artery disease), [place] coronary artery Code(s): I25.10 - ATHSCL HEART DISEASE OF [place] CORONARY ARTERY W/O ANG PCTRS Status: Chronic Qualifiers: [place] vs. transplanted heart: [place] heart Associated angina: without angina Qualified Code(s): I25.10 - Atherosclerotic heart disease of [place] coronary artery without angina pectoris (4) Hypertension Code(s): I10 - ESSENTIAL (PRIMARY) HYPERTENSION Status: Chronic (5) Physical deconditioning Code(s): R53.81 - OTHER MALAISE Status: Chronic - Plan * SNU evaluation pending, can be discharged to SNU once accepted * will increase norvasc to 10mg po daily for now for better BP control * no other changes in plan for now continue current plan of care * case and plan d/w patient she understands nad agrees with this plan
[2017-07-11] MEDS: Aspirin 300 MG Suppository PR SCH (11:41)
[2017-07-11 12:04] LABS: Hematocrit 37.9 % (36.0-47.0)
[2017-07-11] MEDS ORDERED: FLU VACC TS2017-18 (>65YR) 0.5 ML SYRINGE IM ONE (21:00)
[2017-07-12 04:28] LABS: Hematocrit 39.2 % (36.0-47.0); Mean Platelet Volume 9.4 fL (7.4-10.4); Red Blood Cell (RBC) Count 3.94 mill/uL (4.20-5.40); White Blood Cell (WBC) Count 32.8 thou/uL (4.8-10.8)
[2017-07-12 04:39] LABS: Anion Gap 10 mmol/L (10-20); BUN (Urea Nitrogen) 36 mg/dL (9.8-20.1); Calc. Creatinine Clearance 35 mL/min (70-130); Calcium 8.7 mg/dL (7.8-10.44); Carbon Dioxide 23 mmol/L (23-31); Chloride 112 mmol/L (98-107); Estimated GFR-MDRD 48
[2017-07-12 04:52] LABS: Band 2 % (5-11); Neutrophil 93 % (42-75)
[2017-07-12] MEDS: Aspirin 325 MG TAB PO SCH (08:04)
[2017-07-12] MEDS: Heparin 5,000 UNITS/ML VIAL SC SCH ×2 (08:05→20:09)
[2017-07-12] MEDS: Cyanocobalamin (Vitamin B-12) 1,000 MCG TAB PO SCH (08:05)
[2017-07-12] MEDS: Folic Acid 1 MG TAB PO SCH (08:05)
[2017-07-12] MEDS: Famotidine 20 MG TAB PO SCH (08:05)
[2017-07-12] MEDS: predniSONE 50 MG TAB PO SCH (08:09)
--- NOTE | 2017-07-12 10:40 | PRG ---
DATE OF SERVICE: 07/12/2017 Doreen Mcmillan is awake, alert, responsive, in no distress. Post-extubation she remains stable. PHYSICAL EXAMINATION: VITAL SIGNS: Sats are 95 on 2 liters, blood pressure 130/64, pulse 77, temperature 97. CHEST: Chest reveals decreased breath sounds without any wheezing. CARDIAC: Normal S1, S2. ABDOMEN: Soft, no masses. LABORATORY DATA: White count is 32,000. Electrolytes are normal. IMPRESSION: 1. Respiratory failure, status post intubation. 2. Renal failure, resolved. 3. Leukocytosis. PLAN: From a pulmonary standpoint of view, eventually placement. I had a lengthy discussion with t he patient's daughter who at one time was in agreement that the patient should be made a DNR. We need to reassess this discussion with the daughter. Pulmonary will follow at a distance. Please call if needed.
[2017-07-12] MEDS: Aspirin 300 MG Suppository PR SCH (10:52)
[2017-07-12 12:04] VITALS: BMI 23.8
--- NOTE | 2017-07-12 13:44 | PDOC.PN ---
- Subjective Encounter Start Date: 07/12/17 Encounter Start Time: 13:37 pt being her plesant self eating well still weak family to decide abt dnr no f/c no n/v - Objective Resuscitation Status: Resuscitation Status FULL:Full Resuscitation MAR Reviewed: Yes Vital Signs & Weight: Vital Signs (12 hours) Temp Pulse Resp BP BP Pulse Ox 07/12/17 08:04 77 135/65 07/12/17 08:00 97.9 F 77 18 95 07/12/17 07:22 97.9 F 77 18 135/65 95 07/12/17 03:02 95 Weight Admit Weight 113 lb 8.608 oz Weight 121 lb 14.4 oz Most Recent Monitor Data Heart Rate from ECG 65 NIBP 158/75 NIBP BP-Mean 85 Respiration from ECG 19 SpO2 94 I&O: 07/11/17 07/12/17 07/13/17 06:59 06:59 06:59 Intake Total 2270 2280 Output Total 1100 1350 Balance 1170 930 Result Diagrams: 07/12/17 03:57 07/12/17 03:57 Phys Exam - Physical Examination Constitutional: NAD HEENT: moist MMs Neck: no JVD decreased bs at bases Cardiovascular: RRR Gastrointestinal: soft, non-tender Musculoskeletal: pulses present Neurological: moves all 4 limbs Dx/Plan (1) Acute on chronic diastolic CHF (congestive heart failure) Code(s): I50.33 - ACUTE ON CHRONIC DIASTOLIC (CONGESTIVE) HEART FAILURE Status : Acute Comment: ef 60% (2) MARILYN (acute kidney injury) Code(s): N17.9 - ACUTE KIDNEY FAILURE, UNSPECIFIED Status: Acute (3) Acute respiratory failure Code(s): J96.00 - ACUTE RESPIRATORY FAILURE, UNSP W HYPOXIA OR HYPERCAPNIA Status: Acute (4) Bradycardia Code(s): R00.1 - BRADYCARDIA, UNSPECIFIED Status: Acute (5) E. coli UTI Code(s): N39.0 - URINARY TRACT INFECTION, SITE NOT SPECIFIED; B96.20 - UNSP ESCHERICHIA COLI THE CAUSE OF DISEASES CLASSD ELSWHR Status: Acute (6) Hypokalemia Code(s): E87.6 - HYPOKALEMIA Status: Resolved (7) CAD (coronary artery disease), [place] coronary artery Code(s): I25.10 - ATHSCL HEART DISEASE OF [place] CORONARY ARTERY W/O ANG PCTRS Status: Chronic Qualifiers: [place] vs. transplanted heart: [place] heart Associated angina: without angina Qualified Code(s): I25.10 - Atherosclerotic heart disease of [place] coronary artery without angina pectoris (8) Hypertension Code(s): I10 - ESSENTIAL (PRIMARY) HYPERTENSION Status: Chronic (9) Physical deconditioning Code(s): R53.81 - OTHER MALAISE Status: Chronic (10) Leucocytosis Code(s): D72.829 - ELEVATED WHITE BLOOD CELL COUNT, UNSPECIFIED Status: Acute - Plan * restart christy and bb and monitor response * replace potassium * awaiting snf approval * family to decide on dnr * leucocytosis due to steroids * physical therapy * case and plan d/w patient she understands nad agrees with this plan
[2017-07-12] MEDS ORDERED: Potassium Chloride 20 MEQ TAB PO SCH (13:45)
[2017-07-12] MEDS: Metoprolol Tartrate 25 MG TAB PO SCH (20:09)
[2017-07-12] MEDS: Cholestyramine/Aspartame 4 gm Packet PO SCH (20:10)
[2017-07-13] MEDS: Cholestyramine/Aspartame 4 gm Packet PO SCH ×2 (05:24→06:29)
[2017-07-13 06:39] LABS: #Eosinphils 0.1 thou/uL (0.0-0.7); #Lymphocytes 1.4 thou/uL (1.20-3.40); #Monocytes 1.8 thou/uL (0.11-0.59); #Neutrophils 18.4 thou/uL (1.40-6.50); %Basophils 0.1 % (0.0-1.0); %Eosinophils 0.2 % (0.0-10.0); %Lymphocytes 6.6 % (21.0-51.0); %Monocytes 8.3 % (0.0-10.0); Hematocrit 35.5 % (36.0-47.0); Mean Platelet Volume 9.6 fL (7.4-10.4); Red Blood Cell (RBC) Count 3.55 mill/uL (4.20-5.40); White Blood Cell (WBC) Count 21.8 thou/uL (4.8-10.8)
[2017-07-13 07:03] LABS: Anion Gap 8 mmol/L (10-20); BUN (Urea Nitrogen) 30 mg/dL (9.8-20.1); BUN/Creatinine Ratio 35.71; Calc. Creatinine Clearance 44 mL/min (70-130); Calcium 8.4 mg/dL (7.8-10.44); Carbon Dioxide 23 mmol/L (23-31); Chloride 114 mmol/L (98-107); Estimated GFR-MDRD 64; Phosphorus 2.4 mg/dL (2.3-4.7)
[2017-07-13] MEDS ORDERED: predniSONE 20 MG TAB PO SCH (08:00)
[2017-07-13] MEDS: Cyanocobalamin (Vitamin B-12) 1,000 MCG TAB PO SCH (08:09)
[2017-07-13] MEDS: Metoprolol Tartrate 25 MG TAB PO SCH (08:10)
[2017-07-13] MEDS: Folic Acid 1 MG TAB PO SCH (08:10)
[2017-07-13] MEDS: Famotidine 20 MG TAB PO SCH (08:10)
[2017-07-13] MEDS: Heparin 5,000 UNITS/ML VIAL SC SCH (08:11)
[2017-07-13] MEDS: Aspirin 325 MG TAB PO SCH (08:14)
[2017-07-13] MEDS ORDERED: Losartan Potassium 25 MG TAB PO SCH (09:00)
--- NOTE | 2017-07-13 10:02 | PDOC.PN ---
- Subjective Encounter Start Date: 07/13/17 Encounter Start Time: 10:00 diarrhea better no cp/sob no f/c no n/v eating well still weak - Objective Resuscitation Status: Resuscitation Status DNR:Do Not Resuscitate MAR Reviewed: Yes Vital Signs & Weight: Vital Signs (12 hours) Temp Pulse Resp BP BP Pulse Ox 07/13/17 08:32 97.2 F L 77 18 93 L 07/13/17 08:10 60 142/67 H 07/13/17 07:25 97.2 F L 60 18 142/67 H 90 L 07/13/17 04:13 97 Weight Admit Weight 113 lb 8.608 oz Weight 124 lb 3.2 oz Most Recent Monitor Data Heart Rate from ECG 65 NIBP 158/75 NIBP BP-Mean 85 Respiration from ECG 19 SpO2 94 I&O: 07/12/17 07/13/17 07/14/17 06:59 06:59 06:59 Intake Total 2280 1800 Output Total 1350 800 Balance 930 1000 Result Diagrams: 07/13/17 06:29 07/13/17 06:29 Phys Exam - Physical Examination Constitutional: NAD HEENT: PERRLA Neck: no JVD decreased bs at bases Cardiovascular: RRR Gastrointestinal: soft, non-tender Musculoskeletal: pulses present Neurological: moves all 4 limbs Psychiatric: A&O x 3 Dx/Plan (1) Acute on chronic diastolic CHF (congestive heart failure) Code(s): I50.33 - ACUTE ON CHRONIC DIASTOLIC (CONGESTIVE) HEART FAILURE Status : Acute Comment: ef 60% (2) MARILYN (acute kidney injury) Code(s): N17.9 - ACUTE KIDNEY FAILURE, UNSPECIFIED Status: Acute (3) Acute respiratory failure Code(s): J96.00 - ACUTE RESPIRATORY FAILURE, UNSP W HYPOXIA OR HYPERCAPNIA Status: Resolved (4) Bradycardia Code(s): R00.1 - BRADYCARDIA, UNSPECIFIED Status: Acute (5) E. coli UTI Code(s): N39.0 - URINARY TRACT INFECTION, SITE NOT SPECIFIED; B96.20 - UNSP ESCHERICHIA COLI THE CAUSE OF DISEASES CLASSD ELSWHR Status: Acute (6) Hypokalemia Code(s): E87.6 - HYPOKALEMIA Status: Resolved (7) CAD (coronary artery disease), [place] coronary artery Code(s): I25.10 - ATHSCL HEART DISEASE OF [place] CORONARY ARTERY W/O ANG PCTRS Status: Chronic Qualifiers: [place] vs. transplanted heart: [place] heart Associated angina: without angina Qualified Code(s): I25.10 - Atherosclerotic heart disease of [place] coronary artery without angina pectoris (8) Hypertension Code(s): I10 - ESSENTIAL (PRIMARY) HYPERTENSION Status: Chronic (9) Physical deconditioning Code(s): R53.81 - OTHER MALAISE Status: Chronic (10) Leucocytosis Code(s): D72.829 - ELEVATED WHITE BLOOD CELL COUNT, UNSPECIFIED Status: Acute (11) NSTEMI (non-ST elevated myocardial infarction) Code(s): I21.4 - NON-ST ELEVATION (NSTEMI) MYOCARDIAL INFARCTION Status: Acute Comment: medical management f/u with dr mosquera in one month - Plan * medically stable * [facility]
[2017-07-13 11:45] VITALS: BP 132/64; TEMP 96.3
--- NOTE | 2017-07-13 12:18 | DIS ---
DATE OF ADMISSION: 07/02/2017 DATE OF DISCHARGE: 07/10/2017 DISPOSITION: [facility]. DISCHARGE DIAGNOSES: Includes, 1. Acute respiratory failure, resolved. 2. Acute on chronic diastolic congestive heart failure with ejection fraction of 60%, stable. 3. Acute kidney injury, resolved. 4. Episode of bradycardia, resolved. 5. Escherichia coli urinary tract infection, resolved. 6. Hypokalemia, resolved. 7. Coronary artery disease, resolved. 8. Hypertension, stable. 9. Physical deconditioning, getting physical therapy. 10. Leukocytosis secondary to steroids, getting better. 11. Gcg-JA-uxmuywvpx myocardial infarction. 12. Medical management, stable. CONSULTANTS: The patient's magnetic tape winder is Dr. Fowler. Patient's PCP is Dr. Jean Rodriguez. DISCHARGE MEDICATIONS: Include aspirin 81 mg p.o. daily, Levaquin 500 mg p.o. daily for 7 days, Coz aar 12.5 p.o. daily, metoprolol 12.5 mg p.o. b.i.d., nitroglycerin p.r.n. for chest pain, Protonix a nd continuation of Protonix and Zocor from home medications, Norvasc 5 mg p.o. daily and Medrol Dose lesia. BRIEF HOSPITAL COURSE: This is an 87-year-old pleasant lady who came into the hospital because of b eing unresponsive. Please refer to the admitting physician's H\T\P for further details. The patien t was initially found to be in rhabdomyolysis, acute kidney failure, significantly elevated troponin and bandemia and also had some hyperkalemia. The patient was found to be in acute respiratory fail ure with hypoxia. She was intubated and Pulmonary was consulted on that day, the possible reason wa s aspiration pneumonia. In addition to diastolic CHF exacerbation, the patient was treated. She im proved. She was initially given vancomycin and Zosyn. Pulmonary was consulted for vent management. Her CT brain was unremarkable. For acute kidney injury, Dr. Rivas was consulted. He thought it was related to cardiorenal syndrome. The patient did improve this hospital stay. Because of the e levated troponin, Cardiology was involved and they decided medical management for tte-IE-tkdygfpwz M I. The patient improved with management. She was extubated and then transferred to the floor to my care. The patient's antibiotics were continued and was transitioned to Levaquin. Her urine cultur e showed E. coli, but colony strength was 25,000-50,000. Blood cultures were negative. Patient was extubated on 07/04/2017. Patient had episode of bradycardia for which Dr. Mckeon discontinued the C oreg. The patient's heart rate improved. Because of the diastolic congestive heart failure, I star lupe her back on a smaller dose of metoprolol 12.5 mg p.o. b.i.d. She is tolerating that well. I wi ll also put her back on Cozaar. Her diastolic congestive heart failure has compensated. Her pneumo derick is getting better. Respiratory failure has resolved. Acute kidney injury has resolved. Her rh abdomyolysis, improved. She was physically weak and case management helped us place her in [facility] for getting more physical therapy. She is asked to follow up with PCP and the magnetic tape winder as an outpatient with Dr. Fowler. The patient right now is medically stable for transfer to the group home for getting more physical therapy and finishing up the antibiotic therapy. She is asked to come back to the emergency room in case symptoms recur. Total time for this discharge took 35 minutes.
[2017-07-17] MEDS ORDERED: predniSONE 20 MG TAB PO SCH (08:00)
[2017-07-21] MEDS ORDERED: predniSONE 20 MG TAB PO SCH (08:00)
--- NOTE | 2017-07-24 14:33 | EKG ---
Test Reason : Blood Pressure : / mmHG Vent. Rate : 081 BPM Atrial Rate : 081 BPM P-R Int : 182 ms QRS Dur : 118 ms QT Int : 408 ms P-R-T Axes : 064 -24 089 degrees QTc Int : 473 ms Normal sinus rhythm Anterior infarct , age undetermined Abnormal ECG Confirmed by LAURA URBANO, RADHA ([id number]), design editor CHRIS RAMIREZ ([id number]) on 07/24/2017 2:33:24 PM Referred By: Confirmed By:RADHA SANCHEZ MD
[2017-07-25] MEDS ORDERED: predniSONE 5 MG TAB PO SCH (08:00)
== END 2017-07-13 11:45 | DRG 208 ==
LOC: ERS 10:48 → IMCU/EMU 12:42 → CCU 15:24 → IMCU/EMU 07-05 16:49 → ONC 07-07 21:22
PROVIDERS: ADMIT Internal Medicine; ATTEND Internal Medicine
PROC: 5A1945Z Respiratory Ventilation, 24-96 Consecutive Hours (ICD-10-PCS; principal; 2017-07-02)
PROC: 0BH17EZ Insertion of Endotracheal Airway into Trachea, Via Natural or Artificial Opening (ICD-10-PCS; 2017-07-02)
DX: J96.01 Acute respiratory failure with hypoxia (principal); J69.0 Pneumonitis due to inhalation of food and vomit; I21.4 Non-ST elevation (NSTEMI) myocardial infarction; R65.20 Severe sepsis without septic shock; G93.41 Metabolic encephalopathy; I50.33 Acute on chronic diastolic (congestive) heart failure; N17.9 Acute kidney failure, unspecified; L89.152 Pressure ulcer of sacral region, stage 2; R64 Cachexia; I13.0 Hypertensive heart and chronic kidney disease with heart failure and stage 1 through stage 4 chronic kidney disease, or unspecified chronic kidney disease; M62.82 Rhabdomyolysis; E87.2 Acidosis; E44.1 Mild protein-calorie malnutrition; E87.3 Alkalosis; E87.5 Hyperkalemia; I25.10 Atherosclerotic heart disease of native coronary artery without angina pectoris; Z95.5 Presence of coronary angioplasty implant and graft; E78.5 Hyperlipidemia, unspecified; K21.9 Gastro-esophageal reflux disease without esophagitis; Z85.038 Personal history of other malignant neoplasm of large intestine; D53.9 Nutritional anemia, unspecified; Z66 Do not resuscitate; N18.9 Chronic kidney disease, unspecified; L89.609 Pressure ulcer of unspecified heel, unspecified stage; L89.529 Pressure ulcer of left ankle, unspecified stage; L89.519 Pressure ulcer of right ankle, unspecified stage; N30.90 Cystitis, unspecified without hematuria; B96.20 Unspecified Escherichia coli [E. coli] as the cause of diseases classified elsewhere
CPT/HCPCS: 36415; 51702; 70450; 71010; 76770; 80048; 80053; 80069; 80306; 80307; 81003; 81015; 82140; 82274; 82550; 82553; 82570; 82805; 83605; 83690; 83735; 83880; 84100; 84156; 84300; 84439; 84443; 84481; 84484; 85025; 85610; 85730; 87015; 87040; 87045; 87046; 87077; 87086; 87186; 87324; 87449; 87899; 90471; 90682; 90732; 93005; 93306; 94002; 94003; 96361; 96365; 96368; 96372; 96374; 96375; A4216; G0008; G0009; G8978-GP-CN; G8979-GP-CK; G8987-GO-CM; G8988-GO-CK; G8996-GN-CM; G8997-GN-CJ; J0696; J1644; J1650; J1940; J1956; J2060; J2250; J2543; J2920; J3010; J3370; J3490; J7042; J7050; J7506; Q2036; S0028

== ENCOUNTER 2017-08-23 02:04 | Emergency (ER) | payer MEDICARE ==
[2017-08-23 03:23] LABS: ALT (SGPT) 17 U/L (8-55); AST (SGOT) 19 U/L (5-34); Alkaline Phosphatase 86 U/L (40-150); Anion Gap 13 mmol/L (10-20); BUN (Urea Nitrogen) 20 mg/dL (9.8-20.1); Bilirubin, Total 0.4 mg/dL (0.2-1.2); Calc. Creatinine Clearance 0 mL/min (70-130); Calcium 9.1 mg/dL (7.8-10.44); Carbon Dioxide 23 mmol/L (23-31); Chloride 108 mmol/L (98-107); Estimated GFR-MDRD 81; Globulin 2.8 g/dL (2.4-3.5); Protein, Total 5.8 g/dL (6.0-8.3)
[2017-08-23 03:42] LABS: #Eosinphils 0.1 thou/uL (0.0-0.7); #Lymphocytes 1.3 thou/uL (1.20-3.40); #Monocytes 0.8 thou/uL (0.11-0.59); #Neutrophils 10.6 thou/uL (1.40-6.50); %Basophils 0.1 % (0.0-1.0); %Eosinophils 0.5 % (0.0-10.0); %Lymphocytes 9.9 % (21.0-51.0); %Monocytes 6.5 % (0.0-10.0); Hematocrit 30.6 % (36.0-47.0); Mean Platelet Volume 7.5 fL (7.4-10.4); Red Blood Cell (RBC) Count 3.03 mill/uL (4.20-5.40); White Blood Cell (WBC) Count 12.8 thou/uL (4.8-10.8)
[2017-08-23 04:33] LABS: Bilirubin Negative (Negative); Blood, Urine Negative (Negative); Glucose, Urine (Dipstick) Negative (Negative); Ketone, Urine Negative (Negative); Nitrite Positive (Negative); Protein, Urine (Dipstick) Negative (Neg-Trace); Urobilinogen 0.2 mg/dL (0.2-1.0)
[2017-08-23 04:38] LABS: Bacteria/HPF 1+ HPF (None Seen); Hyaline Casts/LPF 0-3 HYALINE CAST LPF (0-3 Hyaline); RBC/HPF 0-3 HPF (0-3); Squamous Epithelial None Seen HPF (0-3)
--- NOTE | 2017-08-23 08:19 | RAD ---
AP PELVIS: HISTORY: Left hip pain. FINDINGS/IMPRESSION: Degenerative changes are seen in the lumbar spine, sacroiliac joints, and the hip joints on either s boyd. No definite fracture or dislocation is seen. There are postop changes in the pelvis. A calci fied fibroid is present. POS: [facility]
--- NOTE | 2017-08-23 08:20 | RAD ---
LEFT HIP: Date; 08/29/17 HISTORY: Left hip pain FINDINGS: Left hip joint arthrosis with some bony demineralization. No acute fracture or dislocation. Postsurg ical changes in the pelvis. IMPRESSION: No acute fracture or dislocation. Bony demineralization with degenerative changes. POS: [facility]
--- NOTE | 2017-08-23 09:17 | CT ---
PRELIMINARY REPORT/[facility]/EMERGENCY AFTER HOURS PROCEDURE: Addendum created by Sincere Bergman MD on 08/23/2017 5:41 AM Central Time ([place]\ [place]) The above was read and discussed at approximately 5:41 AM MUSIC EDUCATION DIRECTOR on08/23/2017 with the attending physic candy , AMAN Javier. Initial Report created on 08/23/2017 5:38 AM Central Time ([place] \[place]\ [place]) EXAM: CT Left Lower Extremity Without Intravenous Contrast, Femur EXAM DATE/TIME: 08/23/2017 5:01 AM CLINICAL HISTORY: 87 years old, female; Pain; Thigh; Left; Patient HX: Left hip/leg pain TECHNIQUE: Axial computed tomography images of the left femur without intravenous contrast. COMPARISON: No relevant prior studies available. FINDINGS: Bones/joints: Degenerative changes sacroiliac joints. No fracture. Mild degenerative changes left hi p. Mild degenerative changes about the symphysis. No dislocation. Soft tissues: Unremarkable. Vasculature: Subtle stranding in the fat about the superficial femoral vein. Consider correlation wi th ultrasound to exclude DVT.. Other findings: Distended urinary bladder. Possible bladder diverticulum. Calcified fibroid uterus IMPRESSION: 1. Degenerative changes sacroiliac joints. No fracture. 2. Distended urinary bladder. Possible bladder diverticulum. 3. Subtle stranding in the fat about the superficial femoral vein. Consider correlation with ultraso und to exclude DVT.. 4. Mild degenerative changes left hip. Thank you for allowing us to participate in the care of your patient. Dictated and Authenticated by: Sincere Bergman MD 08/23/2017 5:38 AM Central Time ([place] \[place]\ [place]) FINAL REPORT CT LEFT LOWER EXTREMITY WITHOUT IV CONTRAST: Date: 08/23/17 FINDINGS/IMPRESSION: I agree with the preliminary report given by Dr. Sincere Bergman of [facility]. POS: [facility]
== END 2017-08-23 06:29 | disposition home or self-care (01) ==
LOC: ERS 02:04
DX: N39.0 Urinary tract infection, site not specified (principal); I25.2 Old myocardial infarction; I11.0 Hypertensive heart disease with heart failure; I50.9 Heart failure, unspecified; K21.9 Gastro-esophageal reflux disease without esophagitis; Z79.899 Other long term (current) drug therapy
CPT/HCPCS: 36415; 51701; 72170; 80053; 81003; 81015; 85025; 93005; 96365; A4353; J0696